=== PATIENT | female | born 1980 | race Caucasian/White ===

== ENCOUNTER 2016-10-24 17:48 | Inpatient (IN) | payer OTHER ==
[~2016-10-24] VITALS: Ht 165.1 cm; Wt 63.7 kg
[2016-10-24 20:00] VITALS: Ht 165.1 cm; Wt 63.7 kg
[2016-10-24 20:06] VITALS: BP 119/65; RESP 20
[2016-10-24 20:21] VITALS: PULSE 85
[2016-10-24] MEDS ORDERED: BUPR300T36 PO (23:58)
[2016-10-24] MEDS ORDERED: LAMO200T PO (23:58)
[2016-10-24] MEDS ORDERED: ESCI20TA PO (23:59)
[2016-10-25] VITALS (12 sets, daily range): BP systolic 95–121; BP diastolic 51–70; PULSE 77–108; RESP 16–20
[2016-10-25] MEDS ORDERED: ONDANSETRON 4 MG INJ IV PRN
[2016-10-25 06:05] LABS: ADD SCAN DIFF NO
[2016-10-25 06:35] LABS: ALANINE AMINOTRANSFERASE 30 IU/L (13-69); ALBUMIN 2.9 g/dl (3.3-4.9); ALBUMIN/GLOBULIN RATIO 1.31; ALKALINE PHOSPHATASE 35 IU/L (42-121); ANION GAP 11 (8-16); ASPARTATE AMINO TRANSFERASE 14 IU/L (15-46); BILIRUBIN,INDIRECT 0.1 mg/dl (0-1.1); BILIRUBIN,TOTAL 0.1 mg/dl (0.2-1.3); BLOOD UREA NITROGEN 18 mg/dl (7-20); CARBON DIOXIDE 26 mmol/L (21-31); CHLORIDE 108 mmol/L (97-110); CREATININE 0.83 mg/dl (0.44-1.00); GLUCOSE 84 mg/dl (70-220); MAGNESIUM 1.9 mg/dl (1.7-2.5); PHOSPHORUS 3.7 mg/dl (2.5-4.9); POTASSIUM 4.3 mmol/L (3.5-5.1); SODIUM 141 mmol/L (135-144); TOTAL PROTEIN 5.1 g/dl (6.1-8.1)
[2016-10-25 06:49] LABS: ABNORMAL IP MESSAGE 1; HEMATOCRIT 21.5 % (37.0-47.0); MEAN CORPUSCULAR HEMOGLOBIN 27.9 pg (29.0-33.0); MEAN CORPUSCULAR HGB CONC 32.1 g/dl (32.0-37.0); MEAN PLATELET VOLUME 10.2 fl (7.4-10.4); PLATELET COUNT 172 10^3/UL (140-415); RED BLOOD COUNT 2.47 10^6/ul (4.20-5.40); RED CELL DISTRIBUTION WIDTH 13.3 % (11.5-14.5); WHITE BLOOD COUNT 5.6 10^3/ul (4.8-10.8)
[2016-10-25 06:56] LABS: TROPONIN-I < 0.012 ng/ml (0.00-0.12)
[2016-10-25 07:27] LABS: HEMOGLOBIN 6.9 g/dl (12.0-16.0)
[2016-10-25] MEDS: LAMOTRIGINE 100 MG TAB PO SCH (09:34)
[2016-10-25] MEDS: ESCITALOPRAM 10 MG TAB PO SCH (09:35)
[2016-10-25] MEDS: BUPROPION (XL) 150 MG TAB PO SCH (09:35)
[2016-10-25] MEDS: ACETAMINOPHEN 325 MG TAB PO PRN ×2 (09:46→16:03)
--- NOTE | 2016-10-25 09:54 | HP ---
DATE OF ADMISSION: 10/24/2016 CHIEF COMPLAINT: Syncope. HISTORY OF PRESENT ILLNESS: The patient is a 36-year-old female who initially presented to outside hospital complaining of multiple episodes of loss of consciousness. She said syncope occurs only af ter she was walking or when she is standing. She has been feeling dizzy and lightheaded. She state s she has had about 7 episodes of syncope, each lasting about 30 seconds each. She said she was fee ling lightheaded/dizzy and also reported some tingling sensation on her fingers which serve as prodr ome for syncope. She denied any chest pain, palpitations, nausea, vomiting, fevers, chills, focal w eakness. The patient was transferred from outside hospital here because of insurance reasons. REVIEW OF SYSTEMS: A 12-point review was performed and negative except as mentioned in HPI. PAST MEDICAL HISTORY: As per HPI. PAST SURGICAL HISTORY: She has had some type of abdominal surgery for GERD, gastric bypass surgery, gastric fundoplication per GI endoscopy. SOCIAL HISTORY: Denied a history of tobacco, alcohol, or illicit drug use. ALLERGIES: CODEINE. HOME MEDICATION: 1. Bupropion. 2. Lexapro. 3. Lamictal. 4. Prevacid. 5. Ranexa. PHYSICAL EXAMINATION: Vital signs: Initially when she came in, blood pressure was 119/68, heart rate 67, respiratory rate 20, temperature 98.8, oxygen saturation 99% on room air while she was in supine position. We did or thostatics, and in the prone position, 103/55, sitting 95/51, and standing 96/51. GENERAL: The patient lying in bed in no acute distress but at times seems slightly worried. HEENT: No obvious head deformity. Pupils reactive to light. Extraocular muscles intact. CARDIOVASCULAR: Regular rate and rhythm. No extra sounds. LUNGS: Clear. ABDOMEN: Soft, nontender, nondistended. Positive bowel sounds. EXTREMITIES: No edema. NEUROLOGIC: No focal deficit. LABORATORY DATA: Her laboratory results just came and show that hemoglobin is 6.9. Otherwise, CBC and CMP within normal limits. IMPRESSION: 1. Syncope. 2. History of bipolar disorder. 3. History of gastroesophageal reflux disease. PLAN: We will continue to monitor on telemetry unit. We will obtain a 2D echo, head CT, and caroti d Doppler ultrasound. We will trend her troponins. We did do orthostatics, and it was not positive . I am not quite sure if this has any relation with some type of psychiatric condition. This is ye t to be determined. In the meantime, we will rule out for ACS and obtain a 2D echo and monitor on t he telemetry unit. Further workup and management per clinical course. Dictated By: VA ÁLVAREZ/NEVA Conf#: [id number] DID#: [id number]
[2016-10-25 10:00] LABS: EOSINOPHILS # 0.1 10^3/ul (0.0-0.5); MONOCYTE # 0.2 10^3/ul (0.3-0.9); NEUTROPHIL # 3.4 10^3/ul (1.6-7.5)
--- NOTE | 2016-10-25 18:53 | PN ---
Date/Time of Note Date/Time of Note DATE: 10/25/16 TIME: 18:45 Assessment/Plan VTE Prophylaxis VTE Prophylaxis Intervention: SCD's Lines/Catheters [facility]ter Type [facility]from [facility] Saline Lock Urinary Cath still in place: No Assessment/Plan Chief Complaint/Hosp Course 1. Syncope-multiple episodes with orthostatic hypotension and tachycardia likely secondary to an acute anemia Transfuse 1 unit of packed red blood cells Rule out cardiac etiology with 2D echo, carotid ultrasound to rule out vascular cause of syncope, of note both cardiac and vascular etiologies patient's syncope is unlikely 2. Normocytic anemia-patient may have developed an acute anemia causing her repeated episodes of syncope Patient denies heavy menses and denies any melena or bright red blood per stool , check a stool occult blood Check an iron panel, vitamin B12 and folate Patient may have an autoimmune hemolytic anemia, will check a reticulocyte count , LDH and haptoglobin, hematology consultation obtained for further workup 3. Hypothyroidism Endocrinology consultation obtained 4. History of bipolar disorder Continue home meds 5. History of gastroesophageal reflux disease with esophageal stricture-no acute issues Prophylaxis: SCDs Problems: Subjective 24 Hr Interval Summary Constitutional: no complaints Exam/Review of Systems Vital Signs Vitals Vital Signs Date Time Temp Pulse Resp B/P Pulse Ox O2 Delivery O2 Flow Rate FiO2 10/25/16 16:06 90 10/25/16 15:15 98.8 19 102/56 100 10/25/16 01:34 Room Air Exam Constitutional: alert Respiratory: clear to auscultation Cardiovascular: regular rate and rhythm Gastrointestinal: soft, No distended Musculoskeletal: nl extremities to inspection Results Result Diagram: 10/25/16 1126 10/25/16 0535 Results 24 hrs Laboratory Tests Test 10/25/16 05:35 10/25/16 05:38 10/25/16 11:26 Sodium Level 141 Potassium Level 4.3 Chloride Level 108 Carbon Dioxide Level 26 Anion Gap 11 Blood Urea Nitrogen 18 Creatinine 0.83 Glucose Level 84 Calcium Level 8.0 L Phosphorus Level 3.7 Magnesium Level 1.9 Total Bilirubin 0.1 L Direct Bilirubin 0.00 Indirect Bilirubin 0.1 Aspartate Amino Transf (AST/SGOT) 14 L Alanine Aminotransferase (ALT/SGPT) 30 Alkaline Phosphatase 35 L Troponin I < 0.012 Total Protein 5.1 L Albumin 2.9 L Globulin 2.20 Albumin/Globulin Ratio 1.31 Thyroid Stimulating Hormone (TSH) 5.450 H White Blood Count 5.6 Red Blood Count 2.47 L Hemoglobin 6.9 *L Hematocrit 21.5 L 20.3 L Mean Corpuscular Volume 87.0 Mean Corpuscular Hemoglobin 27.9 L Mean Corpuscular Hemoglobin Concent 32.1 Red Cell Distribution Width 13.3 Platelet Count 172 Mean Platelet Volume 10.2 Neutrophils % 60.0 Lymphocytes % 36.0 Monocytes % 3.0 Eosinophils % 1.0 Neutrophils # 3.4 Lymphocytes # 2.0 Monocytes # 0.2 L Eosinophils # 0.1 Free Thyroxine 0.61 L Medications Medications Current Medications Ondansetron HCl (Zofran Inj) 4 mg Q6H PRN IV NAUSEA AND/OR VOMITING; Start at 00:00 Acetaminophen (Tylenol Tab) 650 mg Q6H PRN PO PAIN AND OR ELEVATED TEMP Last administered on 10/25/16 16:03; Admin Dose 650 MG; Start 10/25/16 at 00:00 Bupropion HCl (Wellbutrin Xl) 300 mg DAILY PO Last administered on 10/25/16 09 :35; Admin Dose 300 MG; Start 10/25/16 at 09:00 Escitalopram Oxalate (Lexapro) 20 mg DAILY PO Last administered on 10/25/16 09 :35; Admin Dose 20 MG; Start 10/25/16 at 09:00 Lamotrigine (Lamictal) 200 mg DAILY PO Last administered on 10/25/16 09:34; Admin Dose 200 MG; Start 10/25/16 at 09:00 EAN TURPIN October 25, 2016 18:53
[2016-10-25 19:48] LABS: RETICULOCYTE COUNT % 1.3 % (0.5-1.5)
[2016-10-26] VITALS (13 sets, daily range): BP systolic 94–105; BP diastolic 46–59; PULSE 81–98; RESP 18–20
--- NOTE | 2016-10-26 01:39 | RADRPT ---
PROCEDURE: Carotid ultrasound CLINICAL INDICATION: Syncope, carotid bruits TECHNIQUE: Montanez scale, color doppler, spectral doppler ultrasound of the bilateral carotid and martín tebral arteries. This study indirectly references the measurement of the distal ICA diameter as the denominator for s tenosis measurement. Validated velocity measurements with angiographic measurements, velocity criter ia are extrapolated from diameter data as defined by: *Cartoid artery stenosis: montanez-scale and Doppl er US diagnosis. Society of Radiologists in Ultrasound Consensus Conference. Radiology 2003; 229: 34 0-346. SRU Consensus Conference Criteria for the Diagnosis of Carotid Artery Stenosis* Degree of Stenosis, % ICA PSV, cm/sec Plaque Estimate, % ICA/CCA PSV Ratio Normal <125 None <2.0 <50 <125 <50 <2.0 50 69 125-230 >50 2.0-4.0 >70 but less than near occlusion >230 >50 <4.0 Near occlusion High, low, or undetectable Visible Variable Total occlusion Undetectable Visible, no detectable lumen Not applicable COMPARISON: No prior studies are available for comparison. FINDINGS: Location Right CFB470 cm/sec Prox ICA 97 cm/sec Mid ICA90 cm/sec Dist WIQ817 cm/sec ECA66 cm/sec ICA/CCA1.2 Left CCA92 cm/sec Prox ICA 99 cm/sec Mid JBZ281 cm/sec Dist XSZ198 cm/sec ECA95 cm/sec ICA/CCA1.4 Plaque burden: None. Antegrade flow is seen within the vertebral arteries bilaterally. IMPRESSION: Although velocities are minimally elevated within the left internal carotid artery there is no evide nce of plaque seen, may reflect a hyperdynamic state. RPTAT: AADD .Robinson Dias MD, Date Time Electronically viewed and signed by .Robinson Dias MD, on 10/26/2016 01:39 .B/
[2016-10-26 06:47] LABS: ADD SCAN DIFF NO
[2016-10-26 06:51] LABS: BASOPHILS % 0.2 % (0.0-2.0); EOSINOPHILS # 0.1 10^3/ul (0.0-0.5); EOSINOPHILS % 1.1 % (0.0-7.0); HEMATOCRIT 21.9 % (37.0-47.0); LYMPHOCYTES % 37.2 % (15.0-51.0); MEAN CORPUSCULAR VOLUME 87.6 fl (82.0-101.0); MEAN PLATELET VOLUME 10.5 fl (7.4-10.4); MONOCYTE # 0.3 10^3/ul (0.3-0.9); MONOCYTES % 5.9 % (0.0-11.0); NEUTROPHIL # 2.9 10^3/ul (1.6-7.5); NEUTROPHILS % 55.4 % (39.0-77.0); PLATELET COUNT 172 10^3/UL (140-415); RED CELL DISTRIBUTION WIDTH 13.8 % (11.5-14.5); WHITE BLOOD COUNT 5.3 10^3/ul (4.8-10.8)
[2016-10-26 07:12] LABS: POTASSIUM 4.1 mmol/L (3.5-5.1)
[2016-10-26 07:14] LABS: IRON 26 ug/dl (35-150)
[2016-10-26 07:15] LABS: CALCIUM 7.8 mg/dl (8.4-10.2); CREATININE 0.78 mg/dl (0.44-1.00)
[2016-10-26 07:24] LABS: TOTAL IRON BINDING CAPACITY 323 ug/dl (241-421)
[2016-10-26] MEDS: BUPROPION (XL) 150 MG TAB PO SCH (08:19)
[2016-10-26] MEDS: ESCITALOPRAM 10 MG TAB PO SCH (08:20)
[2016-10-26] MEDS: LAMOTRIGINE 100 MG TAB PO SCH (08:20)
--- NOTE | 2016-10-26 09:36 | CONS ---
Date/Time of Note Date/Time of Note DATE: 10/26/16 TIME: : Assessment/Plan Assessment/Plan Problems: (1) Syncope and collapse Status: Acute Comment: Evaluation of this is in process. Please note there is very real possibility that her metabolic issues at hand (2) Bipolar affective disorder in remission Status: Chronic Comment: This is been well controlled on her medications. I do not think that she is having orthostatic hypotension induced by her medication regimen, especially as these medications are not well associated without phenomenon I would not change this regimen (3) History of esophageal stricture Status: Chronic Comment: Noted. This can be followed up as an outpatient (4) Iron (Fe) deficiency anemia Status: Chronic Comment: Depending upon the type of surgery she had these surgeries can be very ulcerogenic and lead to chronic iron deficiency anemias. This is a combination of blood loss and the lack of the ability to absorb the iron. She is going to need some type of iron replacement will go ahead and give her at least 1 dose of Ferrlecit while she is in the hospital. Please note she is artery been given 1 unit of blood. I suspect if we walk around now she will not have the syncopal events Qualifiers: Qualified Code: D50.9 - Iron deficiency anemia, unspecified iron deficiency anemia type (5) History of bariatric surgery Status: Chronic Comment: These surgeries have a malabsorption syndrome as part of how they work. She very easily could have multiple vitamin deficiencies including B12 and D as well as multiple mineral abnormalities. I have counseled her on the appropriate supplements that she is supposed to be taking after these surgeries. We will do the basic lab testing to make sure were not dealing with that. Additional Assessment/Plan Borderline elevation of TSH. This is a chronic problem for this young lady. I suspect she probably has antibody positive thyroid disease but is euthyroid. Based on the current teachings from the [place] [employer] and endocrine Society she is not appropriate for intervention. What I do not know is what her cortisol axis is like. I doubt that she has a significant cortisol abnormality but I will check just to be on the safe side Consultation Date/Type/Reason Admit Date/Time October 24, 2016 at 19:35 Date of Consultation: October 26, 2016 Type of Consultation: Endocrinology Reason for Consultation Borderline elevation of TSH; status post gastric bypass; syncope; iron deficiency anemia Referring Provider: DYANA,BORNA Hx of Present Illness Charming 36-year-old right-handed single female admitted with syncope. This is a new phenomenon for this woman. She has otherwise been in generally good health with specific caveats to be seen in the past medical history. Her history is as documented. Please note that she has not been taking her medications for the bariatric surgery gastric bypass she had in the past. This means she has not been on B12 she has not been on multiple vitamins she has not been on calcium and she has not been on vitamin D. She denies any prior treatment with steroids the best of her knowledge Constitutional: no complaints Eyes: no complaints ENT: no complaints Respiratory: no complaints Cardiovascular: no complaints Gastrointestinal: no complaints (Specifically denies melena or bright red blood per rectum) Genitourinary: no complaints Musculoskeletal: no complaints Skin: no complaints Neurologic: no complaints Endocrine: no complaints (Specifically denies orthostatic symptoms also denies any possible exposure to steroids) Past Medical History Bipolar affective disorder; history of obesity; mal absorption. Past Surgical History Status post gastric bypass with [employer] construction performed in [facility]. Status post upper endoscopy for esophageal stricture after the prior surgery 3. Family History Significant Family History: no pertinent family hx Social History Alcohol Use: rarely Smoking Status: Never smoker Drug Use: none Other Social History Born in [place] and raised there is lives in [place] for the last 10 years. She is involved but not engaged or . She lives alone Exam/Review of Systems Vital Signs Vitals Vital Signs Date Time Temp Pulse Resp B/P Pulse Ox O2 Delivery O2 Flow Rate FiO2 10/26/16 08:02 81 10/26/16 08:00 98.0 18 94/46 98 10/25/16 01:34 Room Air Intake and Output 10/25/16 10/25/16 10/26/16 15:00 23:00 07:00 Intake Total 1150 ml 400 ml Balance 1150 ml 400 ml Exam Constitutional: alert, oriented Psych: nl mood/affect, no complaints Eyes: EOMI, nl conjunctiva, nl lids, nl sclera Respiratory: clear to auscultation, normal air movement Cardiovascular: nl pulses, regular rate and rhythm Gastrointestinal: nl liver, spleen, non-tender, soft Results Result Diagram: 10/26/16 0610 10/26/16 0610 Results 24 hrs Laboratory Tests Test 10/25/16 11:26 10/25/16 19:30 10/26/16 06:10 Hematocrit 20.3 L 21.9 L Free Thyroxine 0.61 L Erythrocyte Sedimentation Rate 3 Absolute Reticulocyte Count 0.034 Percent Reticulocyte Count 1.3 Lactate Dehydrogenase 268 L White Blood Count 5.3 Red Blood Count 2.50 L Hemoglobin 7.0 L Mean Corpuscular Volume 87.6 Mean Corpuscular Hemoglobin 28.0 L Mean Corpuscular Hemoglobin Concent 32.0 Red Cell Distribution Width 13.8 Platelet Count 172 Mean Platelet Volume 10.5 H Neutrophils % 55.4 Lymphocytes % 37.2 Monocytes % 5.9 Eosinophils % 1.1 Basophils % 0.2 Nucleated Red Blood Cells % 0.0 Neutrophils # 2.9 Lymphocytes # 2.0 Monocytes # 0.3 Eosinophils # 0.1 Basophils # 0.0 Nucleated Red Blood Cells # 0.0 Sodium Level 139 Potassium Level 4.1 Chloride Level 113 H Carbon Dioxide Level 28 Anion Gap 2 #L Blood Urea Nitrogen 19 Creatinine 0.78 Glucose Level 87 Calcium Level 7.8 L Iron Level 26 L Total Iron Binding Capacity 323 Percent Iron Saturation 8 L Medications Medications Current Medications Ondansetron HCl (Zofran Inj) 4 mg Q6H PRN IV NAUSEA AND/OR VOMITING; Start at 00:00 Acetaminophen (Tylenol Tab) 650 mg Q6H PRN PO PAIN AND OR ELEVATED TEMP Last administered on 10/25/16 16:03; Admin Dose 650 MG; Start 10/25/16 at 00:00 Bupropion HCl (Wellbutrin Xl) 300 mg DAILY PO Last administered on 10/26/16 08 :19; Admin Dose 300 MG; Start 10/25/16 at 09:00 Escitalopram Oxalate (Lexapro) 20 mg DAILY PO Last administered on 10/26/16 08 :20; Admin Dose 20 MG; Start 10/25/16 at 09:00 Lamotrigine 200 mg 200 mg DAILY PO Last administered on 10/26/16 08:20; Admin Dose 200 MG; Start 10/25/16 at 09:00 Ferric Sodium Gluconate Complex/ Sodium Chloride (Ferrlecit/NS) 110 ml @ 100 mls/hr Q24H IVPB ; Start 10/26/16 at 10:00; Stop 10/28/16 at 11:05 Cyanocobalamin (Vitamin B12 Inj) 1,000 mcg ONCE ONCE IM ; Start 10/26/16 at 10: 00; Stop 10/26/16 at 10:01 ELIZABETH TRAORE MD October 26, 2016 09:36
[2016-10-26 09:57] LABS: FOLATE 6.9 ng/ml (2.8-20.0)
[2016-10-26] MEDS ORDERED: CYANOCOBALAMIN 1000 MCG INJ IM ONE (10:00)
[2016-10-26] MEDS ORDERED: SOD FERRIC GLUC COMPLX 125 MG in SOD CHLORIDE 0.9% 100 ML IVPB SCH (10:00)
[2016-10-26] MEDS: ACETAMINOPHEN 325 MG TAB PO PRN ×2 (10:36→17:26)
[2016-10-26] MEDS: MULTIVITAMINS THERAPEUTIC TAB PO SCH (10:38)
--- NOTE | 2016-10-26 13:13 | CONS ---
Date/Time of Note Date/Time of Note DATE: 10/26/16 TIME: 13:01 Assessment/Plan Assessment/Plan Chief Complaint/Hosp Course 36 yo with severe anemia secondary to severe iron deficiency as well as Vitamin b12 deficiency. These are related to her gastric bypass from 2014 as it appears patient is not fabiola to appropriatly absorb essential nutrients. Give her low LDH and normal bilirubin it is unlikely patient is hemolyzing. -start Vitamin b12 1000mcg q day x 7 days then 1x week for 4 week. She will then continue with q months dosage -check methylmalonic acid and homocysteine levels. -start folate 1 mg q day -cont IV iron x 5 days for now -continue to monitor Hg. Problems: Consultation Date/Type/Reason Admit Date/Time October 24, 2016 at 19:35 Date of Consultation: October 26, 2016 Type of Consultation: Hematology Reason for Consultation anemia Referring Provider: EAN TURPIN Hx of Present Illness 36 yo with history of gastric bypass in 2014 who presented first to [facility] after an episode of syncopal events where she repeatedly passed out in the bathroom. Pt states she also has heavy periods during which time she craves red meat and feels weak. In the ER she was noted to be severely anemic with a Hg 6.9. She received 1 unit of PRBC and her HG only minimally zachary to 7. She continues to feel weak and lightheaded. Anemia labs have been drawn and indicate iron deficiency as well as Vitamin b12 deficiency. She has since been started on IV iron and Vitamin b12 injections. Constitutional: disoriented, other (weak), poor po Eyes: no complaints ENT: no complaints, other (headache) Respiratory: shortness of breath Cardiovascular: no complaints Gastrointestinal: no complaints (Specifically denies melena or bright red blood per rectum) Genitourinary: no complaints Musculoskeletal: bone/joint pain, no complaints Skin: no complaints Neurologic: no complaints Endocrine: no complaints (Specifically denies orthostatic symptoms also denies any possible exposure to steroids) Psychological: nl mood/affect, no complaints Past Medical History She has had some type of abdominal surgery for GERD, gastric bypass surgery, gastric fundoplication per GI endoscopy. Family History Significant Family History: no pertinent family hx Social History Alcohol Use: rarely Smoking Status: Never smoker Drug Use: none Exam/Review of Systems Vital Signs Vitals Vital Signs Date Time Temp Pulse Resp B/P Pulse Ox O2 Delivery O2 Flow Rate FiO2 10/26/16 12:14 90 10/26/16 11:42 98.0 18 101/52 98 10/25/16 01:34 Room Air Intake and Output 10/25/16 10/25/16 10/26/16 15:00 23:00 07:00 Intake Total 1150 ml 400 ml Balance 1150 ml 400 ml Exam Constitutional: alert, oriented Psych: nl mood/affect, no complaints Head: normocephalic Eyes: nl conjunctiva ENMT: nl external ears & nose Neck: non-tender, supple Respiratory: clear to auscultation, normal air movement Cardiovascular: nl pulses, regular rate and rhythm Gastrointestinal: soft Musculoskeletal: nl extremities to inspection, nl gait and stance Extremities: normal pulses Results Result Diagram: 10/26/16 0610 10/26/16 0610 Results 24 hrs Laboratory Tests Test 10/25/16 19:30 10/26/16 06:10 Erythrocyte Sedimentation Rate 3 Absolute Reticulocyte Count 0.034 Percent Reticulocyte Count 1.3 Lactate Dehydrogenase 268 L White Blood Count 5.3 Red Blood Count 2.50 L Hemoglobin 7.0 L Hematocrit 21.9 L Mean Corpuscular Volume 87.6 Mean Corpuscular Hemoglobin 28.0 L Mean Corpuscular Hemoglobin Concent 32.0 Red Cell Distribution Width 13.8 Platelet Count 172 Mean Platelet Volume 10.5 H Neutrophils % 55.4 Lymphocytes % 37.2 Monocytes % 5.9 Eosinophils % 1.1 Basophils % 0.2 Nucleated Red Blood Cells % 0.0 Neutrophils # 2.9 Lymphocytes # 2.0 Monocytes # 0.3 Eosinophils # 0.1 Basophils # 0.0 Nucleated Red Blood Cells # 0.0 Sodium Level 139 Potassium Level 4.1 Chloride Level 113 H Carbon Dioxide Level 28 Anion Gap 2 #L Blood Urea Nitrogen 19 Creatinine 0.78 Glucose Level 87 Calcium Level 7.8 L Iron Level 26 L Total Iron Binding Capacity 323 Percent Iron Saturation 8 L Ferritin 4.7 L Vitamin B12 Level 191 L Folate 6.9 Random Cortisol 12.1 Medications Medications Current Medications Ondansetron HCl (Zofran Inj) 4 mg Q6H PRN IV NAUSEA AND/OR VOMITING; Start at 00:00 Acetaminophen (Tylenol Tab) 650 mg Q6H PRN PO PAIN AND OR ELEVATED TEMP Last administered on 10/26/16 10:36; Admin Dose 650 MG; Start 10/25/16 at 00:00 Bupropion HCl (Wellbutrin Xl) 300 mg DAILY PO Last administered on 10/26/16 08 :19; Admin Dose 300 MG; Start 10/25/16 at 09:00 Escitalopram Oxalate (Lexapro) 20 mg DAILY PO Last administered on 10/26/16 08 :20; Admin Dose 20 MG; Start 10/25/16 at 09:00 Lamotrigine 200 mg 200 mg DAILY PO Last administered on 10/26/16 08:20; Admin Dose 200 MG; Start 10/25/16 at 09:00 Ferric Sodium Gluconate Complex/ Sodium Chloride (Ferrlecit/NS) 110 ml @ 100 mls/hr Q24H IVPB Last administered on 10/26/16 10:51; Admin Dose 100 MLS/HR; Start 10/26/16 at 10:00; Stop 10/28/16 at 11:05 Multivitamins Therapeutic (Theragran) 1 tab DAILY PO Last administered on 10:38; Admin Dose 1 TAB; Start 10/26/16 at 09:30 Cyanocobalamin 1000 mcg 1,000 mcg DAILY IM ; Start 10/26/16 at 14:00; Stop at 09:01 Ferric Sodium Gluconate Complex/ Sodium Chloride (Ferrlecit/NS) 110 ml @ 110 mls/hr Q24H IVPB ; Start 10/26/16 at 13:00; Stop 10/30/16 at 13:59; Status NAVNEET CRAWFORD M.D. October 26, 2016 13:12
[2016-10-26] MEDS ORDERED: CYANOCOBALAMIN 1000 MCG INJ IM SCH (14:00)
[2016-10-26 14:13] LABS: HEMATOCRIT 21.5 % (37.0-47.0)
--- NOTE | 2016-10-26 14:34 | PN ---
Date/Time of Note Date/Time of Note DATE: 10/26/16 TIME: 14:29 Assessment/Plan VTE Prophylaxis VTE Prophylaxis Intervention: SCD's Lines/Catheters IV C[facility]ter Type (from [facility] Saline Lock Urinary Cath still in place: No Assessment/Plan Assessment/Plan 1. Syncope-multiple episodes with orthostatic hypotension and tachycardia likely secondary to an acute anemia: no further episodes so far * Patient having intermittent non sustained episodes of tachycardia to 120s on the monitor * f/u echo / urine drug abuse screen / mag / phos 2. Severe symptomatic Normocytic anemia 2/2 iron and B12 deficiency likely from gastric bypass per hematology patient reports periods typically last 8 days, but regular Will need extra transfusion / iron therapy and likely lifetime b12 therapy 3. Subclinical Hypothyroidism: no intervention / monitoring per Endo 4. History of bipolar disorder: Stable Continue home meds 5. History of gastroesophageal reflux disease with esophageal stricture-no acute issues Prophylaxis: SCDs Subjective 24 Hr Interval Summary Free Text/Dictation feels better Exam/Review of Systems Vital Signs Vitals Vital Signs Date Time Temp Pulse Resp B/P Pulse Ox O2 Delivery O2 Flow Rate FiO2 10/26/16 12:14 90 10/26/16 11:42 98.0 18 101/52 98 10/25/16 01:34 Room Air Intake and Output 10/25/16 10/25/16 10/26/16 14:59 22:59 06:59 Intake Total 1150 ml 400 ml Balance 1150 ml 400 ml Exam Constitutional: alert Respiratory: clear to auscultation Cardiovascular: regular rate and rhythm Gastrointestinal: soft, No distended Musculoskeletal: nl extremities to inspection Results Result Diagram: 10/26/16 1217 10/26/16 0610 Results 24 hrs Laboratory Tests Test 10/25/16 19:30 10/26/16 06:10 10/26/16 12:17 Erythrocyte Sedimentation Rate 3 Absolute Reticulocyte Count 0.034 Percent Reticulocyte Count 1.3 Lactate Dehydrogenase 268 L White Blood Count 5.3 Red Blood Count 2.50 L Hemoglobin 7.0 L 7.0 L Hematocrit 21.9 L 21.5 L Mean Corpuscular Volume 87.6 Mean Corpuscular Hemoglobin 28.0 L Mean Corpuscular Hemoglobin Concent 32.0 Red Cell Distribution Width 13.8 Platelet Count 172 Mean Platelet Volume 10.5 H Neutrophils % 55.4 Lymphocytes % 37.2 Monocytes % 5.9 Eosinophils % 1.1 Basophils % 0.2 Nucleated Red Blood Cells % 0.0 Neutrophils # 2.9 Lymphocytes # 2.0 Monocytes # 0.3 Eosinophils # 0.1 Basophils # 0.0 Nucleated Red Blood Cells # 0.0 Sodium Level 139 Potassium Level 4.1 Chloride Level 113 H Carbon Dioxide Level 28 Anion Gap 2 #L Blood Urea Nitrogen 19 Creatinine 0.78 Glucose Level 87 Calcium Level 7.8 L Iron Level 26 L Total Iron Binding Capacity 323 Percent Iron Saturation 8 L Ferritin 4.7 L Vitamin B12 Level 191 L Folate 6.9 Random Cortisol 12.1 Medications Medications Current Medications Ondansetron HCl (Zofran Inj) 4 mg Q6H PRN IV NAUSEA AND/OR VOMITING; Start at 00:00 Acetaminophen (Tylenol Tab) 650 mg Q6H PRN PO PAIN AND OR ELEVATED TEMP Last administered on 10/26/16 10:36; Admin Dose 650 MG; Start 10/25/16 at 00:00 Bupropion HCl (Wellbutrin Xl) 300 mg DAILY PO Last administered on 10/26/16 08 :19; Admin Dose 300 MG; Start 10/25/16 at 09:00 Escitalopram Oxalate (Lexapro) 20 mg DAILY PO Last administered on 10/26/16 08 :20; Admin Dose 20 MG; Start 10/25/16 at 09:00 Lamotrigine (Lamictal) 200 mg DAILY PO Last administered on 10/26/16 08:20; Admin Dose 200 MG; Start 10/25/16 at 09:00 Multivitamins Therapeutic 1 tab 1 tab DAILY PO Last administered on 10/26/16 10:38; Admin Dose 1 TAB; Start 10/26/16 at 09:30 Ferric Sodium Gluconate Complex/ Sodium Chloride (Ferrlecit/NS) 110 ml @ 110 mls/hr Q24H IVPB ; Start 10/27/16 at 13:00; Stop 10/30/16 at 13:59 Cyanocobalamin (Vitamin B12 Inj) 1,000 mcg DAILY IM ; Start 10/27/16 at 09:00; Stop 11/02/16 at 09:01 RUDDY BLOOD October 26, 2016 14:34
--- NOTE | 2016-10-26 17:40 | RADRPT ---
PROCEDURE: US Pelvis CLINICAL INDICATION: Menorrhagia. Anemia. TECHNIQUE: Sonographic evaluation of the pelvis was performed utilizing both transabdominal and tr ansvaginal technique. Curved array transabdominal transducer technique as well as a high frequency endovaginal probe was utilized. Images were reviewed on the high-resolution PACS workstation. COMPARISON: No prior studies are available for comparison. FINDINGS: The uterus measures 7.85 cm x 3.33 cm x 3.79 cm in dimension. The uterus is anteverted in normal position. The endometrium measures 0.98 cm in thickness. The right ovary measures 3.1 cm x 1.75 cm x 1.71 cm in dimension. The left ovary measures 4.26 cm x 2.92 cm x 2.49 cm in dimension. There is a 1.9 x 1.6 x 1.8 cm left ovarian cystic lesion with diffu se low level internal echoes. There is normal flow demonstrated within the ovaries. There are no ad nexal masses. There is no significant free fluid within the pelvis. IMPRESSION: 1. Complicated left ovarian cystic lesion measuring 1.9 cm, which may represent a hemorrhagic cyst or endometrioma. Follow-up pelvic ultrasound and 6 or 12 weeks is recommended. RPTAT: EE .Jeremiah Rodriguez MD, Date Time Electronically viewed and signed by .Jeremiah Rodriguez MD, MD on 10/26/2016 17:40 .P/
[2016-10-26 19:03] LABS: BARBITURATES Negative (NEGATIVE); BENZODIAZEPINES Negative (NEGATIVE); CANNABINOIDS Negative (NEGATIVE); COCAINE Negative (NEGATIVE); OPIATES Negative (NEGATIVE)
[2016-10-26 23:20] LABS: RETICULOCYTE COUNT % 1.9 % (0.5-1.5)
[2016-10-27] VITALS (11 sets, daily range): BP systolic 94–111; BP diastolic 51–60; PULSE 76–89; RESP 15–20
[2016-10-27 06:14] LABS: ADD SCAN DIFF NO
[2016-10-27 06:19] LABS: BASOPHILS % 0.5 % (0.0-2.0); EOSINOPHILS # 0.1 10^3/ul (0.0-0.5); EOSINOPHILS % 0.9 % (0.0-7.0); HEMATOCRIT 22.6 % (37.0-47.0); HEMOGLOBIN 7.5 g/dl (12.0-16.0); LYMPHOCYTES # 2.2 10^3/ul (0.8-2.9); LYMPHOCYTES % 38.4 % (15.0-51.0); MEAN CORPUSCULAR HEMOGLOBIN 28.3 pg (29.0-33.0); MEAN CORPUSCULAR HGB CONC 33.2 g/dl (32.0-37.0); MEAN CORPUSCULAR VOLUME 85.3 fl (82.0-101.0); MONOCYTE # 0.3 10^3/ul (0.3-0.9); MONOCYTES % 5.7 % (0.0-11.0); NEUTROPHIL # 3.1 10^3/ul (1.6-7.5); NEUTROPHILS % 54.1 % (39.0-77.0); PLATELET COUNT 164 10^3/UL (140-415); RED BLOOD COUNT 2.65 10^6/ul (4.20-5.40); RED CELL DISTRIBUTION WIDTH 13.6 % (11.5-14.5); WHITE BLOOD COUNT 5.6 10^3/ul (4.8-10.8)
[2016-10-27 06:31] LABS: MAGNESIUM 1.8 mg/dl (1.7-2.5); PHOSPHORUS 3.6 mg/dl (2.5-4.9); POTASSIUM 3.9 mmol/L (3.5-5.1)
[2016-10-27 06:34] LABS: CREATININE 0.74 mg/dl (0.44-1.00)
[2016-10-27 06:35] LABS: CALCIUM 7.6 mg/dl (8.4-10.2)
[2016-10-27] MEDS: BUPROPION (XL) 150 MG TAB PO SCH (08:46)
[2016-10-27] MEDS: CYANOCOBALAMIN 1000 MCG INJ IM SCH (08:46)
[2016-10-27] MEDS: MULTIVITAMINS THERAPEUTIC TAB PO SCH (08:47)
[2016-10-27] MEDS: LAMOTRIGINE 100 MG TAB PO SCH (08:47)
[2016-10-27] MEDS: ESCITALOPRAM 10 MG TAB PO SCH (08:47)
[2016-10-27 10:54] LABS: THYROID MICROSOMAL ANTIBODY 1 IU/mL (<9)
--- NOTE | 2016-10-27 12:02 | CONS ---
Date/Time of Note Date/Time of Note DATE: 10/27/16 TIME: 11:58 Assessment/Plan Assessment/Plan Chief Complaint/Hosp Course 36 yo with severe anemia secondary to severe iron deficiency as well as Vitamin b12 deficiency. These are related to her gastric bypass from 2014 as it appears patient is not able to appropriately absorb essential nutrients. Give her low LDH and normal bilirubin it is unlikely patient is hemolyzing. Although patient' s hg only zachary to 7.5, it is likely that her initial Hg was less than 7 and was hemoconcentrated at the time which is why after 3 units of PRBCs and fluid the Hg only zachary to 7.5 -will transfuse 2 units of PRBC -continue with Vitamin b12 1000mcg q day x 7 days then 1x week for 4 week. She will then continue with q months dosage -check methylmalonic acid and homocysteine levels. -start folate 1 mg q day -cont IV iron x 5 days for now -continue to monitor Hg. Problems: Consultation Date/Type/Reason Admit Date/Time October 24, 2016 at 19:35 Initial Consult Date 10/26/16 Type of Consultation: Hematology Reason for Consultation anemia Referring Provider: EAN TURPIN 24 HR Interval Summary Free Text/Dictation pt received 2 units of PRBCs yesterday. Hg went up to 7.5. Pt still feels very weak. States her sx did improved after receiving her Vitamin b12 injection and iron infusion Exam/Review of Systems Vital Signs Vitals Vital Signs Date Time Temp Pulse Resp B/P Pulse Ox O2 Delivery O2 Flow Rate FiO2 10/27/16 11:44 98.7 80 20 94/59 100 10/25/16 01:34 Room Air Intake and Output 10/26/16 10/26/16 10/27/16 15:00 23:00 07:00 Intake Total 800 ml 650 ml Output Total 3 ml Balance 797 ml 650 ml Exam Constitutional: alert, oriented Psych: no complaints Head: normocephalic Eyes: nl conjunctiva ENMT: nl external ears & nose Neck: supple Respiratory: clear to auscultation, normal air movement Cardiovascular: nl pulses Gastrointestinal: soft Musculoskeletal: nl extremities to inspection, nl gait and stance Extremities: normal pulses Results Result Diagram: 10/27/16 0528 10/27/16 0528 Results 24 hrs Laboratory Tests Test 10/26/16 12:17 10/26/16 17:30 10/26/16 22:58 10/27/16 05:28 Hemoglobin 7.0 L 7.5 L Hematocrit 21.5 L 22.6 L Stool Occult Blood POSITIVE Urine Opiates Screen Negative Urine Barbiturates Negative Urine Amphetamines Screen Negative Urine Benzodiazepines Screen Negative Urine Cocaine Screen Negative Urine Cannabinoids Negative Absolute Reticulocyte Count 0.057 Percent Reticulocyte Count 1.9 H White Blood Count 5.6 Red Blood Count 2.65 L Mean Corpuscular Volume 85.3 Mean Corpuscular Hemoglobin 28.3 L Mean Corpuscular Hemoglobin Concent 33.2 Red Cell Distribution Width 13.6 Platelet Count 164 Mean Platelet Volume 10.0 Neutrophils % 54.1 Lymphocytes % 38.4 Monocytes % 5.7 Eosinophils % 0.9 Basophils % 0.5 Nucleated Red Blood Cells % 0.0 Neutrophils # 3.1 Lymphocytes # 2.2 Monocytes # 0.3 Eosinophils # 0.1 Basophils # 0.0 Nucleated Red Blood Cells # 0.0 Sodium Level 138 Potassium Level 3.9 Chloride Level 114 H Carbon Dioxide Level 26 Anion Gap 2 L Blood Urea Nitrogen 18 Creatinine 0.74 Glucose Level 85 Calcium Level 7.6 L Phosphorus Level 3.6 Magnesium Level 1.8 Vitamin B12 Level 958 H Medications Medications Current Medications Ondansetron HCl (Zofran Inj) 4 mg Q6H PRN IV NAUSEA AND/OR VOMITING; Start at 00:00 Acetaminophen (Tylenol Tab) 650 mg Q6H PRN PO PAIN AND OR ELEVATED TEMP Last administered on 10/26/16 17:26; Admin Dose 650 MG; Start 10/25/16 at 00:00 Bupropion HCl (Wellbutrin Xl) 300 mg DAILY PO Last administered on 10/27/16 08 :46; Admin Dose 300 MG; Start 10/25/16 at 09:00 Escitalopram Oxalate (Lexapro) 20 mg DAILY PO Last administered on 10/27/16 08 :47; Admin Dose 20 MG; Start 10/25/16 at 09:00 Lamotrigine (Lamictal) 200 mg DAILY PO Last administered on 10/27/16 08:47; Admin Dose 200 MG; Start 10/25/16 at 09:00 Multivitamins Therapeutic 1 tab 1 tab DAILY PO Last administered on 10/27/16 08:47; Admin Dose 1 TAB; Start 10/26/16 at 09:30 Ferric Sodium Gluconate Complex/ Sodium Chloride (Ferrlecit/NS) 110 ml @ 110 mls/hr Q24H IVPB ; Start 10/27/16 at 13:00; Stop 10/30/16 at 13:59 Cyanocobalamin (Vitamin B12 Inj) 1,000 mcg DAILY IM Last administered on t 08:46; Admin Dose 1,000 MCG; Start 10/27/16 at 09:00; Stop 11/02/16 at 09:01 Polyethylene Glycol (Miralax) 17 gm DAILY PO ; Start 10/27/16 at 11:30 NAVNEET LOTT M.D. October 27, 2016 12:02
[2016-10-27] MEDS: POLYETHYLENE GLYCOL 17 GM PACKET PO SCH (12:26)
--- NOTE | 2016-10-27 14:16 | CONS ---
Date/Time of Note Date/Time of Note DATE: 10/27/16 TIME: 14:14 Assessment/Plan Assessment/Plan Chief Complaint/Hosp Course Michael 36-year-old right-handed single female admitted with syncope. This is a new phenomenon for this woman. She has otherwise been in generally good health with specific caveats to be seen in the past medical history. Her history is as documented. Please note that she has not been taking her medications for the bariatric surgery gastric bypass she had in the past. This means she has not been on B12 she has not been on multiple vitamins she has not been on calcium and she has not been on vitamin D. She denies any prior treatment with steroids the best of her knowledge Problems: (1) Blood in stool Status: Acute Comment: Due to the presence of blood in the stool I believe that the addition of sucralfate and famotidine to her regimen is appropriate. Saturation for GI consultation is also appropriate. Evaluation of her upper GI tract anatomy will be of use unless we can get hold of her old information from the other facility (2) Syncope and collapse Status: Acute Comment: No further episodes. This was undoubtedly due to critical anemia. She should get better as we move forward (3) Bipolar affective disorder in remission Status: Chronic Comment: Well-controlled and compensated on medications I would continue the regimen she had as she presented to the hospital (4) Iron (Fe) deficiency anemia Status: Chronic Comment: I am in agreement with the hematology recommendations for 5 days of IV iron. I would not necessarily count on her GI tract being able to absorb oral iron well. Regarding the need for transfusions I defer off to hematology Qualifiers: Iron deficiency anemia type: unspecified iron deficiency Qualified Code: D50.9 - Iron deficiency anemia, unspecified iron deficiency anemia type (5) History of bariatric surgery Status: Chronic Comment: This is the cause of multiple issues for her. 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 Exam/Review of Systems Vital Signs Vitals Vital Signs Date Time Temp Pulse Resp B/P Pulse Ox O2 Delivery O2 Flow Rate FiO2 5/30/17 12:12 85 10/27/16 11:44 98.7 20 94/59 100 10/25/16 01:34 Room Air Intake and Output 10/26/16 10/26/16 10/27/16 15:00 23:00 07:00 Intake Total 800 ml 650 ml Output Total 3 ml Balance 797 ml 650 ml Exam Constitutional: alert, oriented Respiratory: clear to auscultation, normal air movement Cardiovascular: nl pulses, regular rate and rhythm Results Result Diagram: 10/27/1628 10/27/1628 Results 24 hrs Laboratory Tests Test 10/26/16 17:30 10/26/16 22:58 10/27/16 05:28 Stool Occult Blood POSITIVE Urine Opiates Screen Negative Urine Barbiturates Negative Urine Amphetamines Screen Negative Urine Benzodiazepines Screen Negative Urine Cocaine Screen Negative Urine Cannabinoids Negative Absolute Reticulocyte Count 0.057 Percent Reticulocyte Count 1.9 H White Blood Count 5.6 Red Blood Count 2.65 L Hemoglobin 7.5 L Hematocrit 22.6 L Mean Corpuscular Volume 85.3 Mean Corpuscular Hemoglobin 28.3 L Mean Corpuscular Hemoglobin Concent 33.2 Red Cell Distribution Width 13.6 Platelet Count 164 Mean Platelet Volume 10.0 Neutrophils % 54.1 Lymphocytes % 38.4 Monocytes % 5.7 Eosinophils % 0.9 Basophils % 0.5 Nucleated Red Blood Cells % 0.0 Neutrophils # 3.1 Lymphocytes # 2.2 Monocytes # 0.3 Eosinophils # 0.1 Basophils # 0.0 Nucleated Red Blood Cells # 0.0 Sodium Level 138 Potassium Level 3.9 Chloride Level 114 H Carbon Dioxide Level 26 Anion Gap 2 L Blood Urea Nitrogen 18 Creatinine 0.74 Glucose Level 85 Calcium Level 7.6 L Phosphorus Level 3.6 Magnesium Level 1.8 Vitamin B12 Level 958 H Medications Medications Current Medications Ondansetron HCl (Zofran Inj) 4 mg Q6H PRN IV NAUSEA AND/OR VOMITING; Start at 00:00 Acetaminophen (Tylenol Tab) 650 mg Q6H PRN PO PAIN AND OR ELEVATED TEMP Last administered on 10/26/16 17:26; Admin Dose 650 MG; Start 10/25/16 at 00:00 Bupropion HCl (Wellbutrin Xl) 300 mg DAILY PO Last administered on 10/27/16 08 :46; Admin Dose 300 MG; Start 10/25/16 at 09:00 Escitalopram Oxalate (Lexapro) 20 mg DAILY PO Last administered on 10/27/16 08 :47; Admin Dose 20 MG; Start 10/25/16 at 09:00 Lamotrigine (Lamictal) 200 mg DAILY PO Last administered on 10/27/16 08:47; Admin Dose 200 MG; Start 10/25/16 at 09:00 Multivitamins Therapeutic 1 tab 1 tab DAILY PO Last administered on 10/27/16 08:47; Admin Dose 1 TAB; Start 10/26/16 at 09:30 Ferric Sodium Gluconate Complex/ Sodium Chloride (Ferrlecit/NS) 110 ml @ 110 mls/hr Q24H IVPB ; Start 10/27/16 at 13:00; Stop 10/30/16 at 13:59 Cyanocobalamin (Vitamin B12 Inj) 1,000 mcg DAILY IM Last administered on 08:46; Admin Dose 1,000 MCG; Start 10/27/16 at 09:00; Stop 11/02/16 at 09:01 Polyethylene Glycol (Miralax) 17 gm DAILY PO Last administered on 10/27/16 12: 26; Admin Dose 17 GM; Start 10/27/16 at 11:30 Sucralfate (Carafate) 1 gm QID PO ; Start 10/27/16 at 17:00; Status UNV Famotidine (Pepcid) 20 mg BID PO ; Start 10/27/16 at 21:00; Status ELIZABETH BABB MD October 27, 2016 14:16
[2016-10-27] MEDS: SOD FERRIC GLUC COMPLX 125 MG in SOD CHLORIDE 0.9% 100 ML IVPB SCH ×2 (14:27→19:50)
--- NOTE | 2016-10-27 14:49 | RADRPT ---
Echocardiogram Report Patient Name: ALEXA DAVIS Gender: Female Date: 1980 Study Date: 26-Oct-2016 Product Mgr: [facility] Location: [id number] Ref. Physician: EAN TURPIN Quality: Adequate Procedures: Transthoracic echocardiogram with complete 2D, M-Mode, and doppler examination. Indications: Syncope. 2D/M Mode Doppler Measurement Value Normal Ranges Measurement Value Normal Ranges LVIDd 2D 4.3 3.5 - 5.6 cm AV Peak Angel 1.4 m/sec LVIDs 2D 3.2 2.1 - 4.1 cm AV Peak PG 8.2 mmHg LVPWd 2D 0.9 0.6 - 1.1 cm LVOT Peak Angel 1.1 m/sec IVSd 2D 0.9 0.6 - 1.1 cm LVOT Peak PG 5.1 mmHg AoR Diam 2D 2.4 2.0 - 3.7 cm MV E Peak Angel 0.9 m/sec EDV 2D 83.3 cm3 MV A Peak Angel 0.4 m/sec ESV 2D 31.3 cm3 MV E/A 2.2 LA Dimen 2D 3.3 2.3 - 4.0 cm MV Decel Time 143 msec MV Decel [place] 6 MV E/A 2.2 Findings Left Ventricle: Normal left ventricular systolic function. Normal left ventricular cavity size. Normal left ventricular wall thickness. Ejection fraction is visually estimated at 60 %. Tissue Doppler/Mitral Doppler indices are within normal limits. Right Ventricle: Normal right ventricular size. Normal right ventricular systolic function. Left Atrium: The left atrium is normal in size. Right Atrium: The right atrium is normal in size. Mitral Valve: Normal appearance and function of the mitral valve with trace physiologic regurgitation. Aortic Valve: Normal appearance of the aortic valve. No significant aortic stenosis or insufficiency. Tricuspid Valve: Normal appearance and function of the tricuspid valve with trace physiologic regurgitation. Pulmonic Valve: Normal pulmonic valve appearance. There is trace pulmonic regurgitation. Pericardium: Normal pericardium with no significant pericardial effusion. Aorta: Normal aortic root. IVC: Normal size and normal respiratory collapse consistent with normal right atrial pressure. Conclusions 1.Normal left ventricular systolic function. Normal left ventricular cavity size. Normal left ventricular wall thickness. Ejection fraction is visually estimated at 60 %. Tissue Doppler/Mitral Doppler indices are within normal limits. 2.Normal right ventricular size. Normal right ventricular systolic function. 3.The left atrium is normal in size. 4.The right atrium is normal in size. 5.No significant valvular stenosis or regurgitation seen. 6.Normal pericardium with no significant pericardial effusion. Electronically Signed By: Adriel Cervantes 27-Oct-2016 14:49:00 -0700 Patient Name: ALEXA DAVIS Study Date: 26-Oct-2016 [id number]
--- NOTE | 2016-10-27 15:28 | CONS ---
Date/Time of Note Date/Time of Note DATE: 10/27/16 TIME: 15:15 Assessment/Plan Assessment/Plan Additional Assessment/Plan Assessment * Anemia Upper GI bleed vs iron deficiency vs others * History of /Bariatric surgery gastric fundoplication sec to GERD * History of multiple esophageal endoscopy and dilation Plan * PPI * monitor hemoglobin and hematocrit q 6 and transfuse 1 unit of PRBC if hemoglobin <7.5 2units PRBC hemoglobin less than7 * EGD risks and benefit explained to patient and agreed with planned procedure Consultation Date/Type/Reason Admit Date/Time October 24, 2016 at 19:35 Date of Consultation: October 27, 2016 Type of Consultation: Gastroenterology Reason for Consultation stool ob positive x2 Referring Provider: RUDDY BLOOD Hx of Present Illness 36 y/o female with past medical history of gastric fundoplication secondary to GERD(2016),multiple dilation of esophageal stricture .presented to emergency room complaining of syncope>patient complains of multiple episodes of syncope, with associated dizziness,body weakness.She denies any history of hematemesis, hematochezia,chest pain,shortness of breath ,nausea or vomiting. Emergency room course revealed,hemoglobin 6.9 wbc 5.2.Patient was subsequently admitted and received blood transfusion .Stool for occult blood is positive hence referred for evaluation.Patient tolerating solid foods,denies abdominal pain nor hematemesis nor hematochezia Constitutional: disoriented, other (weak), poor po Eyes: no complaints ENT: no complaints, other (headache) Respiratory: shortness of breath Cardiovascular: no complaints Gastrointestinal: no complaints (Specifically denies melena or bright red blood per rectum) Genitourinary: no complaints Musculoskeletal: bone/joint pain, no complaints Skin: no complaints Neurologic: no complaints Endocrine: no complaints (Specifically denies orthostatic symptoms also denies any possible exposure to steroids) Psychological: no complaints Past Medical History Medical History: GERD Past Surgical History Past Surgical Hx: endoscopy, other (fundoplication sec to gerd) Family History Significant Family History: no pertinent family hx Social History Alcohol Use: rarely Smoking Status: Never smoker Drug Use: none Exam/Review of Systems Vital Signs Vitals Vital Signs Date Time Temp Pulse Resp B/P Pulse Ox O2 Delivery O2 Flow Rate FiO2 10/27/16 12:12 85 10/27/16 11:44 98.7 20 94/59 100 10/25/16 01:34 Room Air Intake and Output 10/26/16 10/26/16 10/27/16 15:00 23:00 07:00 Intake Total 800 ml 650 ml Output Total 3 ml Balance 797 ml 650 ml Exam Constitutional: alert, oriented, well developed Psych: nl mood/affect, no complaints Head: atraumatic, normocephalic Eyes: EOMI, PERRL, nl conjunctiva, nl lids, nl sclera ENMT: nl external ears & nose, nl lips & teeth, nl nasal mucosa & septum Neck: non-tender, supple Respiratory: clear to auscultation, normal air movement Cardiovascular: nl pulses, regular rate and rhythm Gastrointestinal: nl liver, spleen, non-tender, soft Musculoskeletal: nl extremities to inspection, nl gait and stance Extremities: normal pulses Neurological: FAMILY [employer]ACTITIONER II-XII intact, nl mental status, nl speech, nl strength Skin: nl turgor, No rash or lesions Lymph: nl lymph nodes Results Result Diagram: 10/27/1628 10/27/16 0528 Results 24 hrs Laboratory Tests Test 10/26/16 17:30 10/26/16 22:58 10/27/16 05:28 Stool Occult Blood POSITIVE Urine Opiates Screen Negative Urine Barbiturates Negative Urine Amphetamines Screen Negative Urine Benzodiazepines Screen Negative Urine Cocaine Screen Negative Urine Cannabinoids Negative Absolute Reticulocyte Count 0.057 Percent Reticulocyte Count 1.9 H White Blood Count 5.6 Red Blood Count 2.65 L Hemoglobin 7.5 L Hematocrit 22.6 L Mean Corpuscular Volume 85.3 Mean Corpuscular Hemoglobin 28.3 L Mean Corpuscular Hemoglobin Concent 33.2 Red Cell Distribution Width 13.6 Platelet Count 164 Mean Platelet Volume 10.0 Neutrophils % 54.1 Lymphocytes % 38.4 Monocytes % 5.7 Eosinophils % 0.9 Basophils % 0.5 Nucleated Red Blood Cells % 0.0 Neutrophils # 3.1 Lymphocytes # 2.2 Monocytes # 0.3 Eosinophils # 0.1 Basophils # 0.0 Nucleated Red Blood Cells # 0.0 Sodium Level 138 Potassium Level 3.9 Chloride Level 114 H Carbon Dioxide Level 26 Anion Gap 2 L Blood Urea Nitrogen 18 Creatinine 0.74 Glucose Level 85 Calcium Level 7.6 L Phosphorus Level 3.6 Magnesium Level 1.8 Vitamin B12 Level 958 H Medications Medications Current Medications Ondansetron HCl (Zofran Inj) 4 mg Q6H PRN IV NAUSEA AND/OR VOMITING; Start at 00:00 Acetaminophen (Tylenol Tab) 650 mg Q6H PRN PO PAIN AND OR ELEVATED TEMP Last administered on 10/26/16 17:26; Admin Dose 650 MG; Start 10/25/16 at 00:00 Bupropion HCl (Wellbutrin Xl) 300 mg DAILY PO Last administered on 10/27/16 08 :46; Admin Dose 300 MG; Start 10/25/16 at 09:00 Escitalopram Oxalate (Lexapro) 20 mg DAILY PO Last administered on 10/27/16 08 :47; Admin Dose 20 MG; Start 10/25/16 at 09:00 Lamotrigine (Lamictal) 200 mg DAILY PO Last administered on 10/27/16 08:47; Admin Dose 200 MG; Start 10/25/16 at 09:00 Multivitamins Therapeutic 1 tab 1 tab DAILY PO Last administered on 10/27/16 08:47; Admin Dose 1 TAB; Start 10/26/16 at 09:30 Ferric Sodium Gluconate Complex/ Sodium Chloride (Ferrlecit/NS) 110 ml @ 110 mls/hr Q24H IVPB ; Start 10/27/16 at 13:00; Stop 10/30/16 at 13:59 Cyanocobalamin (Vitamin B12 Inj) 1,000 mcg DAILY IM Last administered on 08:46; Admin Dose 1,000 MCG; Start 10/27/16 at 09:00; Stop 11/02/16 at 09:01 Polyethylene Glycol (Miralax) 17 gm DAILY PO Last administered on 10/27/16 12: 26; Admin Dose 17 GM; Start 10/27/16 at 11:30 Sucralfate (Carafate) 1 gm QID PO ; Start 10/27/16 at 17:00 Famotidine (Pepcid) 20 mg BID PO ; Start 10/27/16 at 21:00 TINO LEWIS MD October 27, 2016 15:28
[2016-10-27] MEDS: SUCRALFATE 1 GM TAB PO SCH ×2 (17:03→21:01)
[2016-10-27 20:13] LABS: HEMATOCRIT 29.3 % (37.0-47.0); HEMOGLOBIN 10.1 g/dl (12.0-16.0)
[2016-10-27] MEDS: FAMOTIDINE 20 MG TAB PO SCH (21:02)
[2016-10-28] VITALS (14 sets, daily range): BP systolic 91–118; BP diastolic 49–74; PULSE 68–86; RESP 14–26
[2016-10-28 01:36] LABS: HEMATOCRIT 28.1 % (37.0-47.0); HEMOGLOBIN 9.7 g/dl (12.0-16.0)
[2016-10-28 06:41] LABS: ADD SCAN DIFF NO
[2016-10-28 07:09] LABS: CALCIUM 8.1 mg/dl (8.4-10.2); CREATININE 0.82 mg/dl (0.44-1.00); POTASSIUM 4.5 mmol/L (3.5-5.1)
[2016-10-28] MEDS: ESCITALOPRAM 10 MG TAB PO SCH (08:19)
[2016-10-28] MEDS: LAMOTRIGINE 100 MG TAB PO SCH (08:19)
[2016-10-28] MEDS: SUCRALFATE 1 GM TAB PO SCH ×4 (08:19→20:28)
[2016-10-28] MEDS: POLYETHYLENE GLYCOL 17 GM PACKET PO SCH (08:19)
[2016-10-28] MEDS: CYANOCOBALAMIN 1000 MCG INJ IM SCH (08:19)
[2016-10-28] MEDS: BUPROPION (XL) 150 MG TAB PO SCH (08:20)
[2016-10-28] MEDS: MULTIVITAMINS THERAPEUTIC TAB PO SCH ×3 (08:20→20:28)
[2016-10-28] MEDS: FAMOTIDINE 20 MG TAB PO SCH ×2 (08:20→20:29)
--- NOTE | 2016-10-28 08:54 | CONS ---
Date/Time of Note Date/Time of Note DATE: 10/28/16 TIME: 08:49 Assessment/Plan Assessment/Plan Chief Complaint/Hosp Course Michael 36-year-old right-handed single female admitted with syncope. This is a new phenomenon for this woman. She has otherwise been in generally good health with specific caveats to be seen in the past medical history. Her history is as documented. Please note that she has not been taking her medications for the bariatric surgery gastric bypass she had in the past. This means she has not been on B12 she has not been on multiple vitamins she has not been on calcium and she has not been on vitamin D. She denies any prior treatment with steroids the best of her knowledge Problems: (1) History of bariatric surgery Status: Chronic Comment: This is an important issue and has led gradually to current state. The post op supplemnets are in the medication order set as of now (2) Malabsorption Status: Chronic Comment: Surgically induced Qualifiers: Intestinal malabsorption type: other Qualified Code: K90.89 - Other specified intestinal malabsorption (3) Vitamin B 12 deficiency Status: Chronic Comment: replacing (4) Bipolar affective disorder in remission Status: Chronic Comment: Good control on present regimen (5) History of esophageal stricture Status: Chronic Comment: For EGD tonite (6) Iron (Fe) deficiency anemia Status: Chronic Comment: being repleted Qualifiers: Iron deficiency anemia type: unspecified iron deficiency Qualified Code: D50.9 - Iron deficiency anemia, unspecified iron deficiency anemia type (7) Syncope and collapse Status: Resolved Comment: Resolving Consultation Date/Type/Reason Admit Date/Time October 24, 2016 at 19:35 Initial Consult Date 10/26/16 Type of Consultation: Endocrinology Reason for Consultation Metabolic disturbance, malabsorption post bariatric surgery Referring Provider: RUDDY BLOOD 24 HR Interval Summary Constitutional: no complaints Detailed Summary ENT: no complaints Respiratory: no complaints Cardiovascular: no complaints Gastrointestinal: no complaints Genitourinary: no complaints Musculoskeletal: no complaints Exam/Review of Systems Vital Signs Vitals Vital Signs Date Time Temp Pulse Resp B/P Pulse Ox O2 Delivery O2 Flow Rate FiO2 10/28/16 08:25 68 10/28/16 07:44 98.6 18 91/55 100 10/25/16 01:34 Room Air Intake and Output 10/27/16 10/27/16 10/28/16 15:00 23:00 07:00 Intake Total 1410 ml 200 ml Balance 1410 ml 200 ml Exam Constitutional: alert, oriented Neck: non-tender, supple Respiratory: clear to auscultation, normal air movement Cardiovascular: nl pulses, regular rate and rhythm Gastrointestinal: nl liver, spleen, non-tender, soft Results Result Diagram: 10/28/16 0048 10/28/16 0620 Results 24 hrs Laboratory Tests Test 10/27/16 20:00 10/28/16 00:48 10/28/16 06:20 Hemoglobin 10.1 #L 9.7 L Hematocrit 29.3 #L 28.1 L Sodium Level 134 L Potassium Level 4.5 Chloride Level 107 Carbon Dioxide Level 26 Anion Gap 6 L Blood Urea Nitrogen 15 Creatinine 0.82 Glucose Level 87 Calcium Level 8.1 L Vitamin B12 Level 997 H Medications Medications Current Medications Ondansetron HCl (Zofran Inj) 4 mg Q6H PRN IV NAUSEA AND/OR VOMITING; Start at 00:00 Acetaminophen (Tylenol Tab) 650 mg Q6H PRN PO PAIN AND OR ELEVATED TEMP Last administered on 10/26/16 17:26; Admin Dose 650 MG; Start 10/25/16 at 00:00 Bupropion HCl (Wellbutrin Xl) 300 mg DAILY PO Last administered on 10/28/16 08 :20; Admin Dose 300 MG; Start 10/25/16 at 09:00 Escitalopram Oxalate (Lexapro) 20 mg DAILY PO Last administered on 10/28/16 08 :19; Admin Dose 20 MG; Start 10/25/16 at 09:00 Lamotrigine 200 mg 200 mg DAILY PO Last administered on 10/28/16 08:19; Admin Dose 200 MG; Start 10/25/16 at 09:00 Ferric Sodium Gluconate Complex/ Sodium Chloride (Ferrlecit/NS) 110 ml @ 110 mls/hr Q24H IVPB Last administered on 10/27/16 19:50; Admin Dose 110 MLS/HR; Start 10/27/16 at 13:00; Stop 10/30/16 at 13:59 Cyanocobalamin (Vitamin B12 Inj) 1,000 mcg DAILY IM Last administered on 08:19; Admin Dose 1,000 MCG; Start 10/27/16 at 09:00; Stop 11/02/16 at 09:01 Polyethylene Glycol (Miralax) 17 gm DAILY PO Last administered on 10/27/16 12: 26; Admin Dose 17 GM; Start 10/27/16 at 11:30 Sucralfate (Carafate) 1 gm QID PO Last administered on 10/28/16 08:19; Admin Dose 1 GM; Start 10/27/16 at 17:00 Famotidine (Pepcid) 20 mg BID PO Last administered on 10/28/16 08:20; Admin Dose 20 MG; Start 10/27/16 at 21:00 Multivitamins Therapeutic (Theragran) 1 tab BID PO ; Start 10/28/16 at 21:00; Status UNV Calcium Carbonate (Oyster Shell Calcium) 1.25 gm BID GTB ; Start 10/28/16 at 09: 00; Status UNV ELIZABETH TRAORE MD October 28, 2016 08:54
[2016-10-28] MEDS: CALCIUM CARBONATE 1.25 GM TAB PO SCH ×2 (09:56→20:28)
[2016-10-28] MEDS: THIAMINE 100 MG TAB PO SCH (09:57)
[2016-10-28 10:50] LABS: BASOPHILS % 0.3 % (0.0-2.0); EOSINOPHILS # 0.1 10^3/ul (0.0-0.5); EOSINOPHILS % 1.3 % (0.0-7.0); HEMOGLOBIN 9.4 g/dl (12.0-16.0); LYMPHOCYTES # 2.3 10^3/ul (0.8-2.9); LYMPHOCYTES % 32.2 % (15.0-51.0); MEAN CORPUSCULAR HEMOGLOBIN 29.3 pg (29.0-33.0); MEAN CORPUSCULAR HGB CONC 33.6 g/dl (32.0-37.0); MEAN CORPUSCULAR VOLUME 87.2 fl (82.0-101.0); MONOCYTE # 0.5 10^3/ul (0.3-0.9); MONOCYTES % 6.7 % (0.0-11.0); NEUTROPHIL # 4.1 10^3/ul (1.6-7.5); NEUTROPHILS % 59.4 % (39.0-77.0); PLATELET COUNT 174 10^3/UL (140-415); RED BLOOD COUNT 3.21 10^6/ul (4.20-5.40)
--- NOTE | 2016-10-28 11:55 | PN ---
Date/Time of Note Date/Time of Note DATE: 10/28/16 TIME: 11:55 Assessment/Plan VTE Prophylaxis VTE Prophylaxis Intervention: SCD's Lines/Catheters IV [facility] Urinary Cath still in place: No Assessment/Plan Assessment/Plan 1. Syncope-multiple episodes with orthostatic hypotension and tachycardia likely secondary to an acute anemia: no further episodes so far 2. Severe symptomatic Normocytic anemia? multifactorial from the following 3. Iron deficiency likely 2/2 #5 4. Severe B12 Deficiency likely 2/2 #5 5. S/p Gastric bypass 6. Probable GI bleed s/p EGD 09/28 showing the followin. Mild distal esophagitis. No evidence of fundoplication present. 2. Post-bariatric surgery, Marisabel-en-Y anastomosis with patent anastomosis. No evidence of esophageal stricture. Mild gastritis, rule out Helicobacter pylori infection 3. Enteroscopy normal to full insertion. 7. Subclinical Hypothyroidism: no intervention / monitoring per Endo 8. History of bipolar disorder: Stable Continue home meds 9. History of gastroesophageal reflux disease with esophageal stricture- that seems to have resolved PLAN: * Patient is planned for colonoscopy to further evaluate GI bleed * F/u conclusions * Continue IV Iron and subcut B12 * Continue supportive care Prophylaxis: SCDs Subjective 24 Hr Interval Summary Free Text/Dictation Patient sent. Reporting dark tarry stools with streaks of blood. Planned for endoscopy today. Exam/Review of Systems Vital Signs Vitals Vital Signs Date Time Temp Pulse Resp B/P Pulse Ox O2 Delivery O2 Flow Rate FiO2 10/28/16 11:32 98.4 88 18 118/57 99 10/25/16 01:34 Room Air Intake and Output 10/27/16 10/27/16 10/28/16 15:00 23:00 07:00 Intake Total 1410 ml 200 ml Balance 1410 ml 200 ml Exam GENERAL: Patient is alert, oriented x 3, in no apparent distress; does not appear acutely or chronically ill. Patient is able to sit up unassisted.Patient makes good eye contact, is conversant, interactive, coherent. Patient appears calm and comfortable and is able to follow commands. HEENT: Oropharynx is clear. There is no carotid bruit, no masses. Patient's pupils are equal, round and reactive to light bilaterally. Extraocular motions are intact. There is no scleral icterus. There is no facial asymmetry. Patient has mild conjunctival pallor NECK: Supple. LUNGS: Clear to auscultation bilaterally with good air entry. No Wheezes or crackles. HEART: S1, S2. No murmur, gallops or rubs. Regular rate and rhythm. ABDOMEN: Soft, nontender. Normoactive bowel sounds. There are no stigmata of chronic liver disease. BACK: no costovertebral angle tenderness. GENITOURINARY: Deferred. EXTREMITIES: No edema. There is no cyanosis, clubbing. There are 2+ pulses bilaterally distally. NEUROLOGIC: The patient has no lateralizing signs. Cranial nerves II-XII are intact. SKIN: Otherwise, unremarkable. Results Result Diagram: 10/28/16 0610/28/16619 Results 24 hrs Laboratory Tests Test 10/27/16 20:00 10/28/16 00:48 10/28/16 06:20 Hemoglobin 10.1 #L 9.7 L 9.4 L Hematocrit 29.3 #L 28.1 L 28.0 L White Blood Count 7.0 # Red Blood Count 3.21 #L Mean Corpuscular Volume 87.2 Mean Corpuscular Hemoglobin 29.3 Mean Corpuscular Hemoglobin Concent 33.6 Red Cell Distribution Width 14.0 Platelet Count 174 Mean Platelet Volume 10.0 Neutrophils % 59.4 Lymphocytes % 32.2 Monocytes % 6.7 Eosinophils % 1.3 Basophils % 0.3 Nucleated Red Blood Cells % 0.0 Neutrophils # 4.1 Lymphocytes # 2.3 Monocytes # 0.5 Eosinophils # 0.1 Basophils # 0.0 Nucleated Red Blood Cells # 0.0 Sodium Level 134 L Potassium Level 4.5 Chloride Level 107 Carbon Dioxide Level 26 Anion Gap 6 L Blood Urea Nitrogen 15 Creatinine 0.82 Glucose Level 87 Calcium Level 8.1 L Vitamin B12 Level 997 H Medications Medications Current Medications Ondansetron HCl (Zofran Inj) 4 mg Q6H PRN IV NAUSEA AND/OR VOMITING; Start at 00:00 Acetaminophen (Tylenol Tab) 650 mg Q6H PRN PO PAIN AND OR ELEVATED TEMP Last administered on 10/26/16 17:26; Admin Dose 650 MG; Start 10/25/16 at 00:00 Bupropion HCl (Wellbutrin Xl) 300 mg DAILY PO Last administered on 10/28/16 08 :20; Admin Dose 300 MG; Start 10/25/16 at 09:00 Escitalopram Oxalate (Lexapro) 20 mg DAILY PO Last administered on 10/28/16 08 :19; Admin Dose 20 MG; Start 10/25/16 at 09:00 Lamotrigine 200 mg 200 mg DAILY PO Last administered on 10/28/16 08:19; Admin Dose 200 MG; Start 10/25/16 at 09:00 Ferric Sodium Gluconate Complex/ Sodium Chloride (Ferrlecit/NS) 110 ml @ 110 mls/hr Q24H IVPB Last administered on 10/27/16 19:50; Admin Dose 110 MLS/HR; Start 10/27/16 at 13:00; Stop 10/30/16 at 13:59 Cyanocobalamin (Vitamin B12 Inj) 1,000 mcg DAILY IM Last administered on 08:19; Admin Dose 1,000 MCG; Start 10/27/16 at 09:00; Stop 11/02/16 at 09:01 Polyethylene Glycol (Miralax) 17 gm DAILY PO Last administered on 10/27/16 12: 26; Admin Dose 17 GM; Start 10/27/16 at 11:30 Sucralfate (Carafate) 1 gm QID PO Last administered on 10/28/16 08:19; Admin Dose 1 GM; Start 10/27/16 at 17:00 Famotidine (Pepcid) 20 mg BID PO Last administered on 10/28/16 08:20; Admin Dose 20 MG; Start 10/27/16 at 21:00 Multivitamins Therapeutic (Theragran) 1 tab BID PO ; Start 10/28/16 at 10:00 Calcium Carbonate (Oyster Shell Calcium) 1.25 gm BID PO ; Start 10/28/16 at 10: 00 Thiamine HCl (Vitamin B1) 100 mg DAILY PO ; Start 10/28/16 at 10:00 Procedures Procedures PROCEDURE: US Pelvis CLINICAL INDICATION: Menorrhagia. Anemia. TECHNIQUE: Sonographic evaluation of the pelvis was performed utilizing both transabdominal and transvaginal technique. Curved array transabdominal transducer technique as well as a high frequency endovaginal probe was utilized. Images were reviewed on the high-resolution PACS workstation. COMPARISON: No prior studies are available for comparison. FINDINGS: The uterus measures 7.85 cm x 3.33 cm x 3.79 cm in dimension. The uterus is anteverted in normal position. The endometrium measures 0.98 cm in thickness. The right ovary measures 3.1 cm x 1.75 cm x 1.71 cm in dimension. The left ovary measures 4.26 cm x 2.92 cm x 2.49 cm in dimension. There is a 1.9 x 1.6 x 1.8 cm left ovarian cystic lesion with diffuse low level internal echoes. There is normal flow demonstrated within the ovaries. There are no adnexal masses. There is no significant free fluid within the pelvis. IMPRESSION: 1. Complicated left ovarian cystic lesion measuring 1.9 cm, which may represent a hemorrhagic cyst or endometrioma. Follow-up pelvic ultrasound and 6 or 12 weeks is recommended. RPTAT: EE .Jeremiah Rodriguez MD, MD Date Time Electronically viewed and signed by .Jeremiah Rodriguez MD, MD on 10/26/2016 17:40 .P/ CC: RUDDY BLOOD B[place] M. October 28, 2016 11:55
--- NOTE | 2016-10-28 11:56 | EN ---
Date/Time of Note Date/Time of Note DATE: 10/28/16 TIME: 11:55 Event Note Medicine Medicine Event Note PROGRESS NOTE DATE OF SERVICE: 10/27/16 SUBJECTIVE: patient reports black stools with steak of blood. Stool OB positive. OBJECTIVE: Vital Signs Date Time Temp Pulse Resp B/P Pulse Ox O2 Delivery O2 Flow Rate FiO2 10/27/16 12:12 85 10/27/16 11:44 98.7 20 94/59 100 10/25/16 01:34 Room Air Intake and Output 10/26/16 10/26/16 10/27/16 15:00 23:00 07:00 Intake Total 800 ml 650 ml Output Total 3 ml Balance 797 ml 650 ml Exam Constitutional: alert, oriented, well developed Psych: nl mood/affect, no complaints Head: atraumatic, normocephalic Eyes: EOMI, PERRL, nl conjunctiva, nl lids, nl sclera ENMT: nl external ears & nose, nl lips & teeth, nl nasal mucosa & septum Neck: non-tender, supple Respiratory: clear to auscultation, normal air movement Cardiovascular: nl pulses, regular rate and rhythm Gastrointestinal: non-tender, soft Musculoskeletal: nl extremities to inspection, nl gait and stance Extremities: normal pulses Neurological: nl mental status, nl speech, nl strength Skin: No rash or lesions Results Result Diagram: 10/27/1628 10/27/16 0528 Results 24 hrs Laboratory Tests Test 10/26/16 17:30 10/26/16 22:58 10/27/16 05:28 Stool Occult Blood POSITIVE Urine Opiates Screen Negative Urine Barbiturates Negative Urine Amphetamines Screen Negative Urine Benzodiazepines Screen Negative Urine Cocaine Screen Negative Urine Cannabinoids Negative Absolute Reticulocyte Count 0.057 Percent Reticulocyte Count 1.9 H White Blood Count 5.6 Red Blood Count 2.65 L Hemoglobin 7.5 L Hematocrit 22.6 L Mean Corpuscular Volume 85.3 Mean Corpuscular Hemoglobin 28.3 L Mean Corpuscular Hemoglobin Concent 33.2 Red Cell Distribution Width 13.6 Platelet Count 164 Mean Platelet Volume 10.0 Neutrophils % 54.1 Lymphocytes % 38.4 Monocytes % 5.7 Eosinophils % 0.9 Basophils % 0.5 Nucleated Red Blood Cells % 0.0 Neutrophils # 3.1 Lymphocytes # 2.2 Monocytes # 0.3 Eosinophils # 0.1 Basophils # 0.0 Nucleated Red Blood Cells # 0.0 Sodium Level 138 Potassium Level 3.9 Chloride Level 114 H Carbon Dioxide Level 26 Anion Gap 2 L Blood Urea Nitrogen 18 Creatinine 0.74 Glucose Level 85 Calcium Level 7.6 L Phosphorus Level 3.6 Magnesium Level 1.8 Vitamin B12 Level 958 H Medications Medications Current Medications Ondansetron HCl (Zofran Inj) 4 mg Q6H PRN IV NAUSEA AND/OR VOMITING; Start at 00:00 Acetaminophen (Tylenol Tab) 650 mg Q6H PRN PO PAIN AND OR ELEVATED TEMP Last administered on 10/26/16 17:26; Admin Dose 650 MG; Start 10/25/16 at 00:00 Bupropion HCl (Wellbutrin Xl) 300 mg DAILY PO Last administered on 10/27/16 08 :46; Admin Dose 300 MG; Start 10/25/16 at 09:00 Escitalopram Oxalate (Lexapro) 20 mg DAILY PO Last administered on 10/27/16 08 :47; Admin Dose 20 MG; Start 10/25/16 at 09:00 Lamotrigine (Lamictal) 200 mg DAILY PO Last administered on 10/27/16 08:47; Admin Dose 200 MG; Start 10/25/16 at 09:00 Multivitamins Therapeutic 1 tab 1 tab DAILY PO Last administered on 10/27/16 08:47; Admin Dose 1 TAB; Start 10/26/16 at 09:30 Ferric Sodium Gluconate Complex/ Sodium Chloride (Ferrlecit/NS) 110 ml @ 110 mls/hr Q24H IVPB ; Start 10/27/16 at 13:00; Stop 10/30/16 at 13:59 Cyanocobalamin (Vitamin B12 Inj) 1,000 mcg DAILY IM Last administered on 08:46; Admin Dose 1,000 MCG; Start 10/27/16 at 09:00; Stop 11/02/16 at 09:01 Polyethylene Glycol (Miralax) 17 gm DAILY PO Last administered on 10/27/16 12: 26; Admin Dose 17 GM; Start 10/27/16 at 11:30 Sucralfate (Carafate) 1 gm QID PO ; Start 10/27/16 at 17:00 Famotidine (Pepcid) 20 mg BID PO ; Start 10/27/16 at 21:00 ASSESSMENT: 1. Syncope-multiple episodes with orthostatic hypotension and tachycardia likely secondary to an acute anemia: no further episodes so far 2. Severe symptomatic Normocytic anemia? multifactorial from the following 3. Iron deficiency likely 2/2 #5 4. Severe B12 Deficiency likely 2/2 #5 5. S/p Gastric bypass 6. Probable GI bleed with blood in stools and black stools 7. Subclinical Hypothyroidism: no intervention / monitoring per Endo 8. History of bipolar disorder: Stable Continue home meds 9. History of gastroesophageal reflux disease with esophageal stricture PLAN: * continue iron and 1b12 supplementation * GI consult. RUDDY BLOOD October 28, 2016 11:56
[2016-10-28] MEDS: SOD FERRIC GLUC COMPLX 125 MG in SOD CHLORIDE 0.9% 100 ML IVPB SCH (12:38)
[2016-10-28 12:58] LABS: HEMATOCRIT 28.2 % (37.0-47.0); HEMOGLOBIN 9.3 g/dl (12.0-16.0)
--- NOTE | 2016-10-28 13:44 | CONS ---
Date/Time of Note Date/Time of Note DATE: 10/28/16 TIME: 13:40 Assessment/Plan Assessment/Plan Chief Complaint/Hosp Course 36 yo with severe anemia secondary to severe iron deficiency as well as Vitamin b12 deficiency. These are related to her gastric bypass from 2014 as it appears patient is not able to appropriately absorb essential nutrients. Give her low LDH and normal bilirubin it is unlikely patient is hemolyzing. Pt has received 5 units of PRBCs and her Hg is now around 10. She had a slightly drop in Hg from yesterday -agree with EGD to ensure no active bleeding given the slight drop in Hg from yesterday -continue with Vitamin b12 1000mcg q day x 7 days then 1x week for 4 week. She will then continue with q months dosage -check methylmalonic acid and homocysteine levels. -start folate 1 mg q day -cont IV iron x 5 days for now -continue to monitor Hg. Problems: Consultation Date/Type/Reason Admit Date/Time October 24, 2016 at 19:35 Initial Consult Date 10/26/16 Type of Consultation: Hematology Reason for Consultation iron deficiency and vitamin b12 deficiency anemia Referring Provider: RUDDY BLOOD 24 HR Interval Summary Free Text/Dictation pt continues on IV iron and Vitamin b12 injection Exam/Review of Systems Vital Signs Vitals Vital Signs Date Time Temp Pulse Resp B/P Pulse Ox O2 Delivery O2 Flow Rate FiO2 10/28/16 12:15 86 10/28/16 11:32 98.4 18 118/57 99 10/25/16 01:34 Room Air Intake and Output 10/27/16 10/27/16 10/28/16 15:00 23:00 07:00 Intake Total 1410 ml 200 ml Balance 1410 ml 200 ml Exam Constitutional: alert, oriented Psych: no complaints Head: atraumatic, normocephalic Eyes: nl conjunctiva ENMT: nl external ears & nose Neck: supple Respiratory: clear to auscultation Cardiovascular: nl pulses, regular rate and rhythm Gastrointestinal: soft Musculoskeletal: nl extremities to inspection, nl gait and stance Results Result Diagram: 10/28/16 1245 10/28/16 0620 Results 24 hrs Laboratory Tests Test 10/27/16 20:00 10/28/16 00:48 10/28/16 06:20 10/28/16 12:45 Hemoglobin 10.1 #L 9.7 L 9.4 L 9.3 L Hematocrit 29.3 #L 28.1 L 28.0 L 28.2 L White Blood Count 7.0 # Red Blood Count 3.21 #L Mean Corpuscular Volume 87.2 Mean Corpuscular Hemoglobin 29.3 Mean Corpuscular Hemoglobin Concent 33.6 Red Cell Distribution Width 14.0 Platelet Count 174 Mean Platelet Volume 10.0 Neutrophils % 59.4 Lymphocytes % 32.2 Monocytes % 6.7 Eosinophils % 1.3 Basophils % 0.3 Nucleated Red Blood Cells % 0.0 Neutrophils # 4.1 Lymphocytes # 2.3 Monocytes # 0.5 Eosinophils # 0.1 Basophils # 0.0 Nucleated Red Blood Cells # 0.0 Sodium Level 134 L Potassium Level 4.5 Chloride Level 107 Carbon Dioxide Level 26 Anion Gap 6 L Blood Urea Nitrogen 15 Creatinine 0.82 Glucose Level 87 Calcium Level 8.1 L Vitamin B12 Level 997 H Medications Medications Current Medications Ondansetron HCl (Zofran Inj) 4 mg Q6H PRN IV NAUSEA AND/OR VOMITING; Start at 00:00 Acetaminophen (Tylenol Tab) 650 mg Q6H PRN PO PAIN AND OR ELEVATED TEMP Last administered on 10/26/16 17:26; Admin Dose 650 MG; Start 10/25/16 at 00:00 Bupropion HCl (Wellbutrin Xl) 300 mg DAILY PO Last administered on 10/28/16 08 :20; Admin Dose 300 MG; Start 10/25/16 at 09:00 Escitalopram Oxalate (Lexapro) 20 mg DAILY PO Last administered on 10/28/16 08 :19; Admin Dose 20 MG; Start 10/25/16 at 09:00 Lamotrigine 200 mg 200 mg DAILY PO Last administered on 10/28/16 08:19; Admin Dose 200 MG; Start 10/25/16 at 09:00 Ferric Sodium Gluconate Complex/ Sodium Chloride (Ferrlecit/NS) 110 ml @ 110 mls/hr Q24H IVPB Last administered on 10/28/16 12:38; Admin Dose 110 MLS/HR; Start 10/27/16 at 13:00; Stop 10/30/16 at 13:59 Cyanocobalamin (Vitamin B12 Inj) 1,000 mcg DAILY IM Last administered on 08:19; Admin Dose 1,000 MCG; Start 10/27/16 at 09:00; Stop 11/02/16 at 09:01 Polyethylene Glycol (Miralax) 17 gm DAILY PO Last administered on 10/27/16 12: 26; Admin Dose 17 GM; Start 10/27/16 at 11:30 Sucralfate (Carafate) 1 gm QID PO Last administered on 10/28/16 08:19; Admin Dose 1 GM; Start 10/27/16 at 17:00 Famotidine (Pepcid) 20 mg BID PO Last administered on 10/28/16 08:20; Admin Dose 20 MG; Start 10/27/16 at 21:00 Multivitamins Therapeutic (Theragran) 1 tab BID PO ; Start 10/28/16 at 10:00 Calcium Carbonate (Oyster Shell Calcium) 1.25 gm BID PO ; Start 10/28/16 at 10: 00 Thiamine HCl (Vitamin B1) 100 mg DAILY PO ; Start 10/28/16 at 10:00 NAVNEET LOTT M.D. October 28, 2016 13:44
[2016-10-28] MEDS ORDERED: LIDOCAINE 2% (SDV) 5 ML INJ ONE (18:28)
[2016-10-28] MEDS ORDERED: PROPOFOL 20 ML ONE (18:28)
[2016-10-28] MEDS ORDERED: MIDAZOLAM 1 MG/ML 2 ML INJ ONE (18:28)
[2016-10-28] MEDS ORDERED: FENTAnyl 50 MCG/ML VIAL ONE (18:29)
[2016-10-28 18:31] LABS: ANA SCREEN POSITIVE (NEGATIVE)
[2016-10-28] MEDS ORDERED: BISACODYL (EC) 5 MG TAB PO ONE (19:00)
[2016-10-28] MEDS ORDERED: POLYETHYLENE GLYCOL 3350 119 GM POWDER PO ONE (20:00)
[2016-10-28] MEDS ORDERED: MAGNESIUM CITRATE 300 ML BTL PO ONE (20:00)
[2016-10-28 23:11] LABS: HEMATOCRIT 27.1 % (37.0-47.0); HEMOGLOBIN 9.2 g/dl (12.0-16.0)
[2016-10-29] VITALS (15 sets, daily range): BP systolic 83–108; BP diastolic 51–68; PULSE 79–101; RESP 11–20
--- NOTE | 2016-10-29 03:44 | GILP ---
DATE OF PROCEDURE: PROCEDURE: Esophagogastroduodenoscopy with biopsies. BRIEF HISTORY AND INDICATIONS: The patient is being evaluated for unexplained iron deficiency anemi a. The patient is status post initially fundoplication and subsequent to that bariatric surgery wit h what appears to be a Marisabel-en-Y anastomosis with gastric resection. PREMEDICATION: Monitored anesthesia care by anesthesiologist. SURGEON: Luis A Don MD TECHNIQUE: After informed consent, with the patient/relatives understanding the procedure, its indic ations, potential risks and complications, including but not limited to: allergic reaction, bleeding , perforation or infection, and after all pertinent questions were answered to the patient's satisfa ction, the patient/relatives signed witnessed informed consent. After informed consent with the patient in standard position, potential risks and complications as w ell as alternatives and after informed consent was obtained, the patient was placed in the left late ral decubitus, premedication was administered. Following this, the Olympus panendoscope was introdu gera and advanced under visual control and careful examination of the upper gastrointestinal tract, d isclosed the following findings. ESOPHAGUS: There is mild erythema and edema of the EG junction which is displaced approximately 1 c m. STOMACH: Upon entrance to the stomach air was insufflated, it became evident the patient had a dist al gastrectomy with end-to-side Marisabel-en-Y anastomosis. The gastric pouch measures approximately 6 c m and shows erythema of a moderate degree. Biopsies were obtained in a limited fashion. The anastomosis is patent. Small bowel examined to full insertion is unremarkable. The instrument was withdrawn reexamining the mucosa in detail. No additional abnormalities are note d. IMPRESSION: 1. Mild distal esophagitis. No evidence of fundoplication present. 2. Post-bariatric surgery, Marisabel-en-Y anastomosis with patent anastomosis. No evidence of esophagea l stricture. Mild gastritis, rule out Helicobacter pylori infection, biopsies obtained. 3. Enteroscopy normal to full insertion. PLAN: The patient will be treated with PPIs. Given her significant anemia and the report of tarry stools as well as episodic hematochezia, the patient should undergo colonoscopic examination. This will be planned for tomorrow. Further recommendation will depend on the patient's clinical course. Dictated By: LUIS A DON MS/NEVA Conf#: [id number] DID#: [id number]
[2016-10-29] MEDS ORDERED: POLYETHYLENE GLYCOL 3350 119 GM POWDER PO ONE (06:00)
[2016-10-29 06:21] LABS: ADD SCAN DIFF NO
[2016-10-29 06:25] LABS: BASOPHILS % 0.2 % (0.0-2.0); EOSINOPHILS # 0.1 10^3/ul (0.0-0.5); EOSINOPHILS % 1.2 % (0.0-7.0); HEMATOCRIT 27.9 % (37.0-47.0); HEMOGLOBIN 9.3 g/dl (12.0-16.0); LYMPHOCYTES # 1.9 10^3/ul (0.8-2.9); LYMPHOCYTES % 32.9 % (15.0-51.0); MEAN CORPUSCULAR HEMOGLOBIN 29.2 pg (29.0-33.0); MEAN CORPUSCULAR HGB CONC 33.3 g/dl (32.0-37.0); MEAN CORPUSCULAR VOLUME 87.5 fl (82.0-101.0); MEAN PLATELET VOLUME 9.8 fl (7.4-10.4); MONOCYTE # 0.4 10^3/ul (0.3-0.9); MONOCYTES % 6.3 % (0.0-11.0); NEUTROPHIL # 3.4 10^3/ul (1.6-7.5); NEUTROPHILS % 59.2 % (39.0-77.0); PLATELET COUNT 208 10^3/UL (140-415); RED BLOOD COUNT 3.19 10^6/ul (4.20-5.40); RED CELL DISTRIBUTION WIDTH 13.9 % (11.5-14.5); WHITE BLOOD COUNT 5.7 10^3/ul (4.8-10.8)
[2016-10-29 06:37] LABS: CALCIUM 8.1 mg/dl (8.4-10.2); CREATININE 0.79 mg/dl (0.44-1.00); POTASSIUM 4.1 mmol/L (3.5-5.1)
[2016-10-29] MEDS ORDERED: BISACODYL (EC) 5 MG TAB PO ONE (08:00)
--- NOTE | 2016-10-29 08:07 | CONS ---
Date/Time of Note Date/Time of Note DATE: 10/29/16 TIME: 08:03 Assessment/Plan Assessment/Plan Chief Complaint/Hosp Course 36 yo with severe anemia secondary to severe iron deficiency as well as Vitamin b12 deficiency. These are related to her gastric bypass from 2014 as it appears patient is not able to appropriately absorb essential nutrients. Give her low LDH and normal bilirubin it is unlikely patient is hemolyzing. Pt has received 5 units of PRBCs and her Hg is now around 10. She had a slightly drop in Hg from yesterday # Anemia -continue with Vitamin b12 1000mcg q day x 7 days total then 1x week for 4 week. She will then continue with q months dosage -check methylmalonic acid and homocysteine levels. -start folate 1 mg q day -cont IV iron x 5 days total -continue to monitor Hg. -f/u colonoscopy today #Gastritis -continue carafate and pepcid -start omeprazole 2mg q day Approximately 40 min were spent at patient's bedside and in coordination of her care Problems: Consultation Date/Type/Reason Admit Date/Time October 24, 2016 at 19:35 Initial Consult Date 10/26/16 Type of Consultation: Hematology Reason for Consultation anemia secondary to iron deficiency and vitamin b12 deficiency Referring Provider: RUDDY BLOOD 24 HR Interval Summary Free Text/Dictation pt had EGD done yesterday that revealed gastritis Exam/Review of Systems Vital Signs Vitals Vital Signs Date Time Temp Pulse Resp B/P Pulse Ox O2 Delivery O2 Flow Rate FiO2 10/29/16 07:26 98.1 79 16 98/56 100 10/28/16 19:24 Room Air Intake and Output 10/28/16 10/28/16 10/29/16 15:00 23:00 07:00 Intake Total 710 ml 2200 ml Balance 710 ml 2200 ml Exam Constitutional: alert, oriented Psych: no complaints Head: normocephalic Eyes: nl conjunctiva ENMT: nl external ears & nose Neck: jvd, supple Respiratory: clear to auscultation Cardiovascular: nl pulses, regular rate and rhythm Gastrointestinal: soft Musculoskeletal: nl extremities to inspection, nl gait and stance Results Result Diagram: 10/29/16 0557 10/29/16 0557 Results 24 hrs Laboratory Tests Test 10/28/16 12:45 10/28/16 22:20 10/29/16 05:49 10/29/16 05:57 Hemoglobin 9.3 L 9.2 L 9.3 L Hematocrit 28.2 L 27.1 L 27.9 L Lab Scanned Report BLOOD TRANSFUSION White Blood Count 5.7 Red Blood Count 3.19 L Mean Corpuscular Volume 87.5 Mean Corpuscular Hemoglobin 29.2 Mean Corpuscular Hemoglobin Concent 33.3 Red Cell Distribution Width 13.9 Platelet Count 208 Mean Platelet Volume 9.8 Neutrophils % 59.2 Lymphocytes % 32.9 Monocytes % 6.3 Eosinophils % 1.2 Basophils % 0.2 Nucleated Red Blood Cells % 0.0 Neutrophils # 3.4 Lymphocytes # 1.9 Monocytes # 0.4 Eosinophils # 0.1 Basophils # 0.0 Nucleated Red Blood Cells # 0.0 Sodium Level 135 Potassium Level 4.1 Chloride Level 106 Carbon Dioxide Level 28 Anion Gap 5 L Blood Urea Nitrogen 10 Creatinine 0.79 Glucose Level 82 Calcium Level 8.1 L Vitamin B12 Level > 1000 H Medications Medications Current Medications Ondansetron HCl (Zofran Inj) 4 mg Q6H PRN IV NAUSEA AND/OR VOMITING; Start at 00:00 Acetaminophen (Tylenol Tab) 650 mg Q6H PRN PO PAIN AND OR ELEVATED TEMP Last administered on 10/26/16 17:26; Admin Dose 650 MG; Start 10/25/16 at 00:00 Bupropion HCl (Wellbutrin Xl) 300 mg DAILY PO Last administered on 10/28/16 08 :20; Admin Dose 300 MG; Start 10/25/16 at 09:00 Escitalopram Oxalate (Lexapro) 20 mg DAILY PO Last administered on 10/28/16 08 :19; Admin Dose 20 MG; Start 10/25/16 at 09:00 Lamotrigine 200 mg 200 mg DAILY PO Last administered on 10/28/16 08:19; Admin Dose 200 MG; Start 10/25/16 at 09:00 Ferric Sodium Gluconate Complex/ Sodium Chloride (Ferrlecit/NS) 110 ml @ 110 mls/hr Q24H IVPB Last administered on 10/28/16 12:38; Admin Dose 110 MLS/HR; Start 10/27/16 at 13:00; Stop 10/30/16 at 13:59 Cyanocobalamin (Vitamin B12 Inj) 1,000 mcg DAILY IM Last administered on 08:19; Admin Dose 1,000 MCG; Start 10/27/16 at 09:00; Stop 11/02/16 at 09:01 Polyethylene Glycol (Miralax) 17 gm DAILY PO Last administered on 10/27/16 12: 26; Admin Dose 17 GM; Start 10/27/16 at 11:30 Sucralfate (Carafate) 1 gm QID PO Last administered on 10/28/16 20:28; Admin Dose 1 GM; Start 10/27/16 at 17:00 Famotidine (Pepcid) 20 mg BID PO Last administered on 10/28/16 20:29; Admin Dose 20 MG; Start 10/27/16 at 21:00 Multivitamins Therapeutic (Theragran) 1 tab BID PO Last administered on 20:28; Admin Dose 1 TAB; Start 10/28/16 at 10:00 Calcium Carbonate (Oyster Shell Calcium) 1.25 gm BID PO Last administered on 20:28; Admin Dose 1.25 GM; Start 10/28/16 at 10:00 Thiamine HCl (Vitamin B1) 100 mg DAILY PO ; Start 10/28/16 at 10:00 NAVNEET LOTT M.D. Oct 29, 2016 08:07
[2016-10-29] MEDS: CALCIUM CARBONATE 1.25 GM TAB PO SCH ×2 (08:46→22:06)
[2016-10-29] MEDS: THIAMINE 100 MG TAB PO SCH (08:47)
[2016-10-29] MEDS: PANTOPRAZOLE (EC) 40 MG TAB PO SCH (08:47)
[2016-10-29] MEDS: SUCRALFATE 1 GM TAB PO SCH ×4 (08:47→22:06)
[2016-10-29] MEDS: FAMOTIDINE 20 MG TAB PO SCH ×2 (08:47→22:06)
[2016-10-29] MEDS: MULTIVITAMINS THERAPEUTIC TAB PO SCH ×2 (08:47→22:06)
[2016-10-29] MEDS: ESCITALOPRAM 10 MG TAB PO SCH (08:47)
[2016-10-29] MEDS: LAMOTRIGINE 100 MG TAB PO SCH (08:47)
[2016-10-29] MEDS: BUPROPION (XL) 150 MG TAB PO SCH (08:48)
[2016-10-29] MEDS: CYANOCOBALAMIN 1000 MCG INJ IM SCH (08:49)
[2016-10-29] MEDS: POLYETHYLENE GLYCOL 17 GM PACKET PO SCH (08:50)
--- NOTE | 2016-10-29 09:38 | PN ---
Date/Time of Note Date/Time of Note DATE: 10/29/16 TIME: 09:38 Assessment/Plan VTE Prophylaxis VTE Prophylaxis Intervention: SCD's Lines/Catheters [facility] Urinary Cath still in place: No Assessment/Plan Assessment/Plan 1. Syncope-multiple episodes with orthostatic hypotension and tachycardia likely secondary to an acute anemia: no further episodes so far 2. Severe symptomatic Normocytic anemia? multifactorial from the following 3. Iron deficiency likely 2/2 #5 4. Severe B12 Deficiency likely 2/2 #5 5. S/p Gastric bypass 6. Probable GI bleed s/p EGD 10/28 showing the followin. Mild distal esophagitis. No evidence of fundoplication present. 2. Post-bariatric surgery, Marisabel-en-Y anastomosis with patent anastomosis. No evidence of esophageal stricture. Mild gastritis, rule out Helicobacter pylori infection 3. Enteroscopy normal to full insertion. 7. Subclinical Hypothyroidism: no intervention / monitoring per Endo 8. History of bipolar disorder: Stable Continue home meds 9. History of gastroesophageal reflux disease with esophageal stricture- that seems to have resolved PLAN: * Patient is planned for colonoscopy to further evaluate GI bleed * F/u conclusions * Continue IV Iron and subcut B12 * Continue supportive care Prophylaxis: SCDs Subjective 24 Hr Interval Summary Free Text/Dictation Patient has no new issues, Colonoscopy planned for today Exam/Review of Systems Vital Signs Vitals Vital Signs Date Time Temp Pulse Resp B/P Pulse Ox O2 Delivery O2 Flow Rate FiO2 10/29/16 07:26 98.1 79 16 98/56 100 10/28/16 19:24 Room Air Intake and Output 10/28/16 10/28/16 10/29/16 14:59 22:59 06:59 Intake Total 710 ml 2200 ml Balance 710 ml 2200 ml Exam GENERAL: Patient is alert, oriented x 3, in no apparent distress; does not appear acutely or chronically ill. Patient is able to sit up unassisted.Patient makes good eye contact, is conversant, interactive, coherent. Patient appears calm and comfortable and is able to follow commands. HEENT: Oropharynx is clear. There is no carotid bruit, no masses. Patient's pupils are equal, round and reactive to light bilaterally. Extraocular motions are intact. There is no scleral icterus. There is no facial asymmetry. mild pallor NECK: Supple. LUNGS: Clear to auscultation bilaterally with good air entry. No Wheezes or crackles. HEART: S1, S2. No murmur, gallops or rubs. Regular rate and rhythm. ABDOMEN: Soft, nontender. Normoactive bowel sounds. There are no stigmata of chronic liver disease. BACK: no costovertebral angle tenderness. GENITOURINARY: Deferred. EXTREMITIES: No edema. There is no cyanosis, clubbing. There are 2+ pulses bilaterally distally. NEUROLOGIC: The patient has no lateralizing signs. Cranial nerves II-XII are intact. SKIN: Otherwise, unremarkable. Results Result Diagram: 10/29/16 0557 10/29/1657 Results 24 hrs Laboratory Tests Test 10/28/16 12:45 10/28/16 22:20 10/29/16 05:49 10/29/16 05:57 Hemoglobin 9.3 L 9.2 L 9.3 L Hematocrit 28.2 L 27.1 L 27.9 L Lab Scanned Report BLOOD TRANSFUSION White Blood Count 5.7 Red Blood Count 3.19 L Mean Corpuscular Volume 87.5 Mean Corpuscular Hemoglobin 29.2 Mean Corpuscular Hemoglobin Concent 33.3 Red Cell Distribution Width 13.9 Platelet Count 208 Mean Platelet Volume 9.8 Neutrophils % 59.2 Lymphocytes % 32.9 Monocytes % 6.3 Eosinophils % 1.2 Basophils % 0.2 Nucleated Red Blood Cells % 0.0 Neutrophils # 3.4 Lymphocytes # 1.9 Monocytes # 0.4 Eosinophils # 0.1 Basophils # 0.0 Nucleated Red Blood Cells # 0.0 Sodium Level 135 Potassium Level 4.1 Chloride Level 106 Carbon Dioxide Level 28 Anion Gap 5 L Blood Urea Nitrogen 10 Creatinine 0.79 Glucose Level 82 Calcium Level 8.1 L Vitamin B12 Level > 1000 H Medications Medications Current Medications Ondansetron HCl (Zofran Inj) 4 mg Q6H PRN IV NAUSEA AND/OR VOMITING; Start at 00:00 Acetaminophen (Tylenol Tab) 650 mg Q6H PRN PO PAIN AND OR ELEVATED TEMP Last administered on 10/26/16 17:26; Admin Dose 650 MG; Start 10/25/16 at 00:00 Bupropion HCl (Wellbutrin Xl) 300 mg DAILY PO Last administered on 10/29/16 08: 48; Admin Dose 300 MG; Start 10/25/16 at 09:00 Escitalopram Oxalate (Lexapro) 20 mg DAILY PO Last administered on 10/29/16 08: 47; Admin Dose 20 MG; Start 10/25/16 at 09:00 Lamotrigine 200 mg 200 mg DAILY PO Last administered on 10/29/16 08:47; Admin Dose 200 MG; Start 10/25/16 at 09:00 Ferric Sodium Gluconate Complex/ Sodium Chloride (Ferrlecit/NS) 110 ml @ 110 mls/hr Q24H IVPB Last administered on 10/28/16 12:38; Admin Dose 110 MLS/HR; Start 10/27/16 at 13:00; Stop 10/30/16 at 13:59 Cyanocobalamin (Vitamin B12 Inj) 1,000 mcg DAILY IM Last administered on 08:49; Admin Dose 1,000 MCG; Start 10/27/16 at 09:00; Stop 11/02/16 at 09:01 Polyethylene Glycol (Miralax) 17 gm DAILY PO Last administered on 10/29/16 08: 50; Admin Dose 17 GM; Start 10/27/16 at 11:30 Sucralfate (Carafate) 1 gm QID PO Last administered on 10/29/16 08:47; Admin Dose 1 GM; Start 10/27/16 at 17:00 Famotidine (Pepcid) 20 mg BID PO Last administered on 10/29/16 08:47; Admin Dose 20 MG; Start 10/27/16 at 21:00 Multivitamins Therapeutic (Theragran) 1 tab BID PO Last administered on 08:47; Admin Dose 1 TAB; Start 10/28/16 at 10:00 Calcium Carbonate (Oyster Shell Calcium) 1.25 gm BID PO Last administered on 08:46; Admin Dose 1.25 GM; Start 10/28/16 at 10:00 Thiamine HCl (Vitamin B1) 100 mg DAILY PO Last administered on 10/29/16 08:47; Admin Dose 100 MG; Start 10/28/16 at 10:00 Pantoprazole (Protonix Tab) 40 mg DAILY@06 PO Last administered on 10/29/16 08: 47; Admin Dose 40 MG; Start 10/29/16 at 09:00 RUDDY BLOOD Oct 29, 2016 09:38
[2016-10-29 12:40] LABS: ANA TITER 1:40 titer
[2016-10-29] MEDS ORDERED: MIDAZOLAM 1 MG/ML 2 ML INJ ONE (13:29)
[2016-10-29] MEDS ORDERED: LIDOCAINE 2% (SDV) 5 ML INJ ONE (13:29)
[2016-10-29] MEDS ORDERED: PROPOFOL 20 ML ONE (13:29)
[2016-10-29] MEDS ORDERED: FENTAnyl 50 MCG/ML VIAL ONE (13:29)
[2016-10-29] MEDS ORDERED: OXYCODONE/ACETAMINOPHEN (5/325) TAB PO PRN ×2 (13:30)
[2016-10-29] MEDS ORDERED: ONDANSETRON 4 MG INJ IV PRN (13:30)
[2016-10-29] MEDS ORDERED: METOCLOPRAMIDE 10 MG INJ IV PRN (13:30)
[2016-10-29] MEDS ORDERED: DIPHENHYDRAMINE 50 MG INJ IV PRN (13:30)
--- NOTE | 2016-10-29 13:35 | CONS ---
Date/Time of Note Date/Time of Note DATE: 10/29/16 TIME: 13:30 Assessment/Plan Assessment/Plan Chief Complaint/Hosp Course Michael 36-year-old right-handed single female admitted with syncope. This is a new phenomenon for this woman. She has otherwise been in generally good health with specific caveats to be seen in the past medical history. Her history is as documented. Please note that she has not been taking her medications for the bariatric surgery gastric bypass she had in the past. This means she has not been on B12 she has not been on multiple vitamins she has not been on calcium and she has not been on vitamin D. She denies any prior treatment with steroids the best of her knowledge Problems: (1) Syncope and collapse Status: Resolved Comment: This is resolved since she has been in the hospital. This was due to multifactorial metabolic disturbance was most prominent feature being the critical anemia. From the standpoint she is stable for discharge (2) Vitamin B 12 deficiency Status: Chronic Comment: This is being repleted. She will need the B12 on a monthly injection basis by long-term. There is a nasal preparation however is somewhat inconvenient. Is also significantly more expensive. As such I would continue with the parenteral route. From the standpoint she is stable for discharge (3) Malabsorption Status: Chronic Comment: This is caused by the bariatric surgery she had in the past. She was not on the appropriate postoperative regimen. She should be on the following 1 ) chewable multiple vitamins twice a day such as a Flintstones. 2) vitamin B12 once a month3) vitamin D once replaced then at 5860-6142 units a day using an [id number] preparation. For now she will need 50,000 units once a week for a period of 3 months. 4) thiamine 100 mg once a day. 5) calcium citrate 1200 mg twice daily. If this is not done this way we will have problems with her again in the future. Qualifiers: Intestinal malabsorption type: other Qualified Code: K90.89 - Other specified intestinal malabsorption (4) Vitamin D deficiency Status: Chronic Comment: Replace with 50,000 units once a week for the first 3 months then go to 2000 4000 units [id number] preparation daily (5) Bipolar affective disorder in remission Status: Chronic Comment: Stable and controlled on current regimen (6) Iron (Fe) deficiency anemia Status: Chronic Comment: Being repleted with parenteral iron as the patient's unlikely to absorb the oral preparations well. We are approaching the point where she can be discharged from the standpoint Qualifiers: Iron deficiency anemia type: unspecified iron deficiency Qualified Code: D50.9 - Iron deficiency anemia, unspecified iron deficiency anemia type (7) History of bariatric surgery Status: Chronic Comment: As above. Please note she is pending colonoscopy completion which is ongoing as this is being dictated Consultation Date/Type/Reason Admit Date/Time October 24, 2016 at 19:35 Initial Consult Date 10/26/16 Type of Consultation: Endocrinology Reason for Consultation Metabolic disturbance Referring Provider: RUDDY BLOOD 24 HR Interval Summary Free Text/Dictation Patient is receiving colonoscopy at this time is sedated. Exam/Review of Systems Vital Signs Vitals Vital Signs Date Time Temp Pulse Resp B/P Pulse Ox O2 Delivery O2 Flow Rate FiO2 10/29/16 13:03 79 18 108/68 100 Room Air 10/29/16 07:26 98.1 Intake and Output 10/28/16 10/28/16 10/29/16 15:00 23:00 07:00 Intake Total 710 ml 2200 ml Balance 710 ml 2200 ml Exam No changes Results Result Diagram: 10/29/16 0557 10/29/16 0557 Results 24 hrs Laboratory Tests Test 10/28/16 22:20 10/29/16 05:49 10/29/16 05:57 Hemoglobin 9.2 L 9.3 L Hematocrit 27.1 L 27.9 L Lab Scanned Report BLOOD TRANSFUSION White Blood Count 5.7 Red Blood Count 3.19 L Mean Corpuscular Volume 87.5 Mean Corpuscular Hemoglobin 29.2 Mean Corpuscular Hemoglobin Concent 33.3 Red Cell Distribution Width 13.9 Platelet Count 208 Mean Platelet Volume 9.8 Neutrophils % 59.2 Lymphocytes % 32.9 Monocytes % 6.3 Eosinophils % 1.2 Basophils % 0.2 Nucleated Red Blood Cells % 0.0 Neutrophils # 3.4 Lymphocytes # 1.9 Monocytes # 0.4 Eosinophils # 0.1 Basophils # 0.0 Nucleated Red Blood Cells # 0.0 Sodium Level 135 Potassium Level 4.1 Chloride Level 106 Carbon Dioxide Level 28 Anion Gap 5 L Blood Urea Nitrogen 10 Creatinine 0.79 Glucose Level 82 Calcium Level 8.1 L Vitamin B12 Level > 1000 H Medications Medications Current Medications Ondansetron HCl (Zofran Inj) 4 mg Q6H PRN IV NAUSEA AND/OR VOMITING; Start at 00:00 Acetaminophen (Tylenol Tab) 650 mg Q6H PRN PO PAIN AND OR ELEVATED TEMP Last administered on 10/26/16 17:26; Admin Dose 650 MG; Start 10/25/16 at 00:00 Bupropion HCl (Wellbutrin Xl) 300 mg DAILY PO Last administered on 10/29/16 08: 48; Admin Dose 300 MG; Start 10/25/16 at 09:00 Escitalopram Oxalate (Lexapro) 20 mg DAILY PO Last administered on 10/29/16 08: 47; Admin Dose 20 MG; Start 10/25/16 at 09:00 Lamotrigine 200 mg 200 mg DAILY PO Last administered on 10/29/16 08:47; Admin Dose 200 MG; Start 10/25/16 at 09:00 Ferric Sodium Gluconate Complex/ Sodium Chloride (Ferrlecit/NS) 110 ml @ 110 mls/hr Q24H IVPB Last administered on 10/28/16 12:38; Admin Dose 110 MLS/HR; Start 10/27/16 at 13:00; Stop 10/30/16 at 13:59 Cyanocobalamin (Vitamin B12 Inj) 1,000 mcg DAILY IM Last administered on 08:49; Admin Dose 1,000 MCG; Start 10/27/16 at 09:00; Stop 11/02/16 at 09:01 Polyethylene Glycol (Miralax) 17 gm DAILY PO Last administered on 10/29/16 08: 50; Admin Dose 17 GM; Start 10/27/16 at 11:30 Sucralfate (Carafate) 1 gm QID PO Last administered on 10/29/16 08:47; Admin Dose 1 GM; Start 10/27/16 at 17:00 Famotidine (Pepcid) 20 mg BID PO Last administered on 10/29/16 08:47; Admin Dose 20 MG; Start 10/27/16 at 21:00 Multivitamins Therapeutic (Theragran) 1 tab BID PO Last administered on 08:47; Admin Dose 1 TAB; Start 10/28/16 at 10:00 Calcium Carbonate (Oyster Shell Calcium) 1.25 gm BID PO Last administered on 08:46; Admin Dose 1.25 GM; Start 10/28/16 at 10:00 Thiamine HCl (Vitamin B1) 100 mg DAILY PO Last administered on 10/29/16 08:47; Admin Dose 100 MG; Start 10/28/16 at 10:00 Pantoprazole (Protonix Tab) 40 mg DAILY@06 PO Last administered on 10/29/16 08: 47; Admin Dose 40 MG; Start 10/29/16 at 09:00 ELIZABETH TRAORE MD Oct 29, 2016 13:35
[2016-10-29] MEDS: SOD FERRIC GLUC COMPLX 125 MG in SOD CHLORIDE 0.9% 100 ML IVPB SCH (16:17)
[2016-10-29 16:35] LABS: HEMATOCRIT 27.9 % (37.0-47.0); HEMOGLOBIN 9.6 g/dl (12.0-16.0)
[2016-10-29 22:34] LABS: HEMATOCRIT 28.3 % (37.0-47.0); HEMOGLOBIN 9.5 g/dl (12.0-16.0)
[2016-10-30 05:35] LABS: ADD SCAN DIFF NO
[2016-10-30 05:54] LABS: BASOPHILS % 0.2 % (0.0-2.0); EOSINOPHILS # 0.1 10^3/ul (0.0-0.5); EOSINOPHILS % 1.5 % (0.0-7.0); HEMATOCRIT 28.1 % (37.0-47.0); HEMOGLOBIN 9.2 g/dl (12.0-16.0); LYMPHOCYTES # 1.9 10^3/ul (0.8-2.9); LYMPHOCYTES % 33.8 % (15.0-51.0); MEAN CORPUSCULAR HEMOGLOBIN 29.3 pg (29.0-33.0); MEAN CORPUSCULAR HGB CONC 32.7 g/dl (32.0-37.0); MEAN CORPUSCULAR VOLUME 89.5 fl (82.0-101.0); MEAN PLATELET VOLUME 9.7 fl (7.4-10.4); MONOCYTE # 0.4 10^3/ul (0.3-0.9); MONOCYTES % 7.1 % (0.0-11.0); NEUTROPHIL # 3.1 10^3/ul (1.6-7.5); PLATELET COUNT 223 10^3/UL (140-415); RED BLOOD COUNT 3.14 10^6/ul (4.20-5.40); RED CELL DISTRIBUTION WIDTH 14.8 % (11.5-14.5); WHITE BLOOD COUNT 5.5 10^3/ul (4.8-10.8)
[2016-10-30] MEDS: PANTOPRAZOLE (EC) 40 MG TAB PO SCH (06:01)
[2016-10-30 06:40] LABS: CALCIUM 8.4 mg/dl (8.4-10.2); CREATININE 0.95 mg/dl (0.44-1.00); POTASSIUM 4.7 mmol/L (3.5-5.1)
[2016-10-30] MEDS ORDERED: Cyanocobalamin Inj IM (06:47)
[2016-10-30] MEDS ORDERED: ERGO500037 PO (06:47)
[2016-10-30] MEDS ORDERED: Thiamine PO (06:47)
[2016-10-30] MEDS ORDERED: PANT40TA4 PO (06:47)
[2016-10-30] MEDS ORDERED: FER325 PO (06:47)
[2016-10-30] MEDS ORDERED: DOCU-144 PO (06:47)
[2016-10-30] MEDS ORDERED: MULTI PO (06:47)
[2016-10-30] MEDS ORDERED: Calcium Carbonate PO (06:47)
[2016-10-30] MEDS ORDERED: ASC500 PO (06:50)
--- NOTE | 2016-10-30 06:53 | PDOCDIS ---
Discharge Instructions DIAGNOSIS Discharge Diagnosis: Severe anemia 2/2 malabsorption CONDITION Patient Condition: Stable HOME CARE INSTRUCTIONS: Special Diet: Regular Diet ACTIVITY: Activity Restrictions: Slowly Increase Activity Rest between Activity FOLLOW UP/APPOINTMENTS Appointments Followup with your primary doctor within the next 1-2 weeks. If you don't have one please let someone know, we can give you resources that may help you pick one. You may call Dr Derrick Rob's office. he's accepting new patients Name, Degree: Derrick Rob MD Specialty: Internal Medicine Comments: Office Address: [address] [facility] [address] [place] [address] Office Office You may also call your insurance company to assign one to you. Review your medication list with your nurse before leaving and if you need new prescriptions please let your nurse know. I may have made changes to your home medications or given you new prescriptions , please let your primary doctor know as well. Stay compliant with your medications and report any side effects to your PCP or pharmacist. Return to the ER if you have any concerns and cannot reach your doctors or call your insurance company, they usually have a nurse that can help you. OTHER ORDERS: Other Orders: Call Dr. Vaughn's office for follow-up. She can help with your cancer or blood issues. Name, Degree: Petra Vaughn MD Specialty: Oncology, Hematology Comments: Office Address: [address] [facility] [address] [place] [address] Office or [phone] (after hours) Office Also call Dr Spencer's office Name, Degree: Zhang Spencer MD Specialty: Endocrinology Comments: Office Address: [address] [place] [address] Office Office RUDDY BLOOD Oct 30, 2016 06:53
[2016-10-30] MEDS ORDERED: [UNRECOGNIZED DRUG - CODE] MC (06:55)
[2016-10-30 07:39] VITALS: BP 99/58; RESP 18
[2016-10-30] MEDS ORDERED: ERGOCALCIFEROL 50,000 UNIT CAP PO SCH (09:00)
[2016-10-30] MEDS: POLYETHYLENE GLYCOL 17 GM PACKET PO SCH (09:00)
[2016-10-30] MEDS: BUPROPION (XL) 150 MG TAB PO SCH (09:13)
[2016-10-30] MEDS: LAMOTRIGINE 100 MG TAB PO SCH (09:14)
[2016-10-30] MEDS: SUCRALFATE 1 GM TAB PO SCH (09:15)
[2016-10-30] MEDS: ESCITALOPRAM 10 MG TAB PO SCH (09:15)
[2016-10-30] MEDS: THIAMINE 100 MG TAB PO SCH (09:15)
[2016-10-30] MEDS: MULTIVITAMINS THERAPEUTIC TAB PO SCH (09:15)
[2016-10-30] MEDS: FAMOTIDINE 20 MG TAB PO SCH (09:16)
[2016-10-30] MEDS: CALCIUM CARBONATE 1.25 GM TAB PO SCH (09:16)
[2016-10-30] MEDS: CYANOCOBALAMIN 1000 MCG INJ IM SCH (09:17)
--- NOTE | 2016-10-30 14:09 | CONS ---
Date/Time of Note Date/Time of Note DATE: 10/30/16 TIME: 14:05 Assessment/Plan Assessment/Plan Chief Complaint/Hosp Course 36 yo with severe anemia secondary to severe iron deficiency as well as Vitamin B12 deficiency. These are related to her gastric bypass from 2014 as it appears patient is not able to appropriately absorb essential nutrients. Give her low LDH and normal bilirubin it is unlikely patient is hemolyzing. Pt has received 5 units of PRBCs and her Hg is now stable around low to mid 9s. # Anemia -continue with Vitamin b12 1000mcg q day x 7 days total then 1x week for 4 week. She will then continue with q months dosage. -check methylmalonic acid and homocysteine levels - still pending. -continue folate 1 mg q day -cont IV iron x 5 days total -continue to monitor Hg. Ok from hematology perspective to discharge home. -s/p colonoscopy yesterday that revealed small hemorrhoids per patient, awaiting official report #Gastritis -continue carafate and pepcid -continue omeprazole 2mg q day Problems: Consultation Date/Type/Reason Admit Date/Time October 24, 2016 at 19:35 Initial Consult Date 10/27/16 Type of Consultation: Hematology Referring Provider: RUDDY BLOOD 24 HR Interval Summary Free Text/Dictation Patient ready for discharge. She is doing well, just has some gas and mild pressure in her lower abdomen. Per patient, she had a colonoscopy yesterday that showed small hemorrhoids. Exam/Review of Systems Vital Signs Vitals Vital Signs Date Time Temp Pulse Resp B/P Pulse Ox O2 Delivery O2 Flow Rate FiO2 10/30/16 07:39 98.1 71 18 99/58 100 10/29/16 18:51 Room Air Intake and Output 10/29/16 10/29/16 10/30/16 15:00 23:00 07:00 Intake Total 100 ml 710 ml 800 ml Balance 100 ml 710 ml 800 ml Exam Constitutional: alert, oriented Psych: no complaints Head: normocephalic Eyes: nl conjunctiva ENMT: nl external ears & nose Neck: jvd, supple Respiratory: clear to auscultation Cardiovascular: nl pulses, regular rate and rhythm Gastrointestinal: soft Musculoskeletal: nl extremities to inspection, nl gait and stance Results Result Diagram: 10/30/16 0445 10/30/16 0459 Results 24 hrs Laboratory Tests Test 10/29/16 15:56 10/29/16 22:09 10/30/16 04:45 10/30/16 04:56 Hemoglobin 9.6 L 9.5 L 9.2 L Hematocrit 27.9 L 28.3 L 28.1 L White Blood Count 5.5 Red Blood Count 3.14 L Mean Corpuscular Volume 89.5 Mean Corpuscular Hemoglobin 29.3 Mean Corpuscular Hemoglobin Concent 32.7 Red Cell Distribution Width 14.8 H Platelet Count 223 Mean Platelet Volume 9.7 Neutrophils % 57.0 Lymphocytes % 33.8 Monocytes % 7.1 Eosinophils % 1.5 Basophils % 0.2 Nucleated Red Blood Cells % 0.0 Neutrophils # 3.1 Lymphocytes # 1.9 Monocytes # 0.4 Eosinophils # 0.1 Basophils # 0.0 Nucleated Red Blood Cells # 0.0 Vitamin B12 Level > 1000 H Test 10/30/16 04:59 Sodium Level 141 Potassium Level 4.7 Chloride Level 105 Carbon Dioxide Level 28 Anion Gap 13 # Blood Urea Nitrogen 10 Creatinine 0.95 Glucose Level 78 Calcium Level 8.4 JUAN MANUEL PAGE MD Oct 30, 2016 14:09
--- NOTE | 2016-10-30 15:02 | DS ---
Date/Time of Note Date/Time of Note DATE: 10/30/16 TIME: 14:59 Discharge Summary Admission/Discharge Info Admit Date/Time October 24, 2016 at 19:35 Discharge Date/Time Oct 30, 2016 at 11:30 Final Diagnosis 1. Syncope-multiple episodes with orthostatic hypotension and tachycardia likely secondary to an acute anemia: no further episodes so far 2. Severe symptomatic Normocytic anemia? multifactorial from the following 3. Iron deficiency likely 2/2 #5 4. Severe B12 Deficiency likely 2/2 #5 5. S/p Gastric bypass 2014 6. GI bleed 2/2 hemorrhoids EGD 10/28 showing the followin. Mild distal esophagitis. No evidence of fundoplication present. 2. Post-bariatric surgery, Marisabel-en-Y anastomosis with patent anastomosis. No evidence of esophageal stricture. Mild gastritis, rule out Helicobacter pylori infection 3. Enteroscopy normal to full insertion. Colonscopy 10/29 : 1. hemorrhoids per patient 7. Subclinical Hypothyroidism: no intervention / monitoring per Endo 8. History of bipolar disorder: Stable Continue home meds 9. History of gastroesophageal reflux disease with esophageal stricture- that seems to have resolved . Patient Condition: Stable Consults Hematology : Johana Endocrinology : triston GI : Suchov . Procedures 1. Carotid Dopplers to evaluate syncopal episodes. This showed no hemodynamically significant disease. 2. Pelvic ultrasound October 26, 2016 which showed a complicated left ovarian cystic lesion measuring 1.9 cm. Recommended follow-up pelvic ultrasound in 6- 12 weeks. 3. EGD and colonoscopy: See hospital course for results 4. 2D echocardiogram October 25, 2016 to evaluate syncope: This showed ejection fraction at 60% without significant valvular deficits . Hospital Course This 36 yo F had presented with recurrent syncopal episodes about 6-8 times daily and was found to be severely anemic, with orthostatic hypotension. She was first stabilized with transfusion of packed red cells., And she ended up requiring 5 units of packed red cells to get her hemoglobin to a stable level. In the interim she was worked up extensively for the anemia. She was found to have severe iron deficiency as well as severe vitamin B12 deficiency. Hematology consultation was obtained and they assisted in replenishing and managing this. Also her stool occult blood came back positive and the patient had reported black tarry stools. Hence she underwent upper as well as lower endoscopy, and EGD did not show much, just showed a mild esophagitis and colonoscopy only showed hemorrhoids. Hence, her stool bleeding is likely from hemorrhoids and her severe anemia likely from poor absorption from her previous gastric bypass in 2014 with iron deficiency and B12 deficiency. She has been put on the on an appropriate regimen that will work for her and she is recommended to keep this up. She will follow-up with Dr. He, for endocrinology and primary and with Dr. Petra Altamirano for hematology. She was maintained on her medications for depression throughout her hospitalization she had no issues with that. Comorbidities were also aggressively managed as per Med records. Patient at this time has been evaluated and examined in detail and is assessed to be in stable condition and ready for discharge once cleared by all consultants. . Home Meds Active Scripts Syringe & Needle,Insulin,1 Ml (ADVOCATE SYRINGES) 1 Each Disp.syrin, 1 EACH MC weeklyx4 then monthl, #10 Prov:RUDDY BLOOD . 10/30/16 Ascorbic Acid (Vitamin C) 500 Mg Tab, 500 MG PO DAILY for 30 Days, TAB 6 Refills Prov:RUDDY BLOOD . 10/30/16 Docusate Sodium* (Colace*) 100 Mg Capsule, 100 MG PO BID, #60 CAP 6 Refills Prov:RUDDY BLOOD . 10/30/16 Ferrous Sulfate* (Ferrous Sulfate*) 325 Mg Tabec, 325 MG PO BID for 30 Days, TAB 6 Refills Prov:RUDDY BLOOD . 10/30/16 [Thiamine] 100 MG TAB No Conflict Check, 100 MG PO DAILY for 30 Days, 6 Refills Prov:RUDDY BLOOD. 10/30/16 Multivitamins* (Theragran*) 1 Tab Tab, 1 TAB PO BID for 30 Days, TAB 6 Refills Prov:RUDDY BLOOD . 10/30/16 Ergocalciferol (Vitamin D2) (VITAMIN D2) 50,000 Unit Capsule, 20403 UNIT PO Fr@ 09 for 30 Days, CAP 6 Refills Prov:RUDDY BLOOD 10/30/16 [Cyanocobalamin Inj] 1000 MCG/ML SOLN No Conflict Check, 1000 MCG IM weekly, #4 Prov:RUDDY BLOOD . 10/30/16 Pantoprazole* (Pantoprazole*) 40 Mg Tablet.dr, 40 MG PO DAILY@06 for 14 Days Prov:RUDDY BLOOD. 10/30/16 [Calcium Carbonate] 1.25 GM TAB No Conflict Check, 1.25 GM PO BID for 30 Days, 6 Refills Prov:RUDDY BLOOD. 10/30/16 Reported Medications Escitalopram Oxalate* (Lexapro*) 20 Mg Tablet, 20 MG PO DAILY, #30 TAB 10/24/16 Lamotrigine* (Lamotrigine*) 200 Mg Tablet, 200 MG PO DAILY, TAB 10/24/16 Bupropion Hcl* (Bupropion XL*) 300 Mg Tab.sr.24h, 300 MG PO DAILY, TAB.SA 10/24/16 Follow-up Plan See hospital course. . Primary Care Provider Care Physician No Primary Time spent on discharge: > 30 minutes Pending Labs Laboratory Tests Test 10/29/16 15:56 10/29/16 22:09 10/30/16 04:45 10/30/16 04:56 Hemoglobin 9.6g/dl (12.0-16.0) 9.5g/dl (12.0-16.0) 9.2g/dl (12.0-16.0) Hematocrit 27.9% (37.0-47.0) 28.3% (37.0-47.0) 28.1% (37.0-47.0) White Blood Count 5.510^3/ul (4.8-10.8) Red Blood Count 3.1410^6/ul (4.20-5.40) Mean Corpuscular Volume 89.5fl (82.0-101.0) Mean Corpuscular Hemoglobin 29.3pg (29.0-33.0) Mean Corpuscular Hemoglobin Concent 32.7g/dl (32.0-37.0) Red Cell Distribution Width 14.8% (11.5-14.5) Platelet Count 10097^3/UL (140-415) Mean Platelet Volume 9.7fl (7.4-10.4) Neutrophils % 57.0% (39.0-77.0) Lymphocytes % 33.8% (15.0-51.0) Monocytes % 7.1% (0.0-11.0) Eosinophils % 1.5% (0.0-7.0) Basophils % 0.2% (0.0-2.0) Nucleated Red Blood Cells % 0.0/100WBC (0.0-0.0) Neutrophils # 3.110^3/ul (1.6-7.5) Lymphocytes # 1.910^3/ul (0.8-2.9) Monocytes # 0.410^3/ul (0.3-0.9) Eosinophils # 0.110^3/ul (0.0-0.5) Basophils # 0.010^3/ul (0.0-0.1) Nucleated Red Blood Cells # 0.010^3/ul (0.0-0.0) Vitamin B12 Level > 1000pg/ml (239-931) Test 10/30/16 04:59 Sodium Level 141mmol/L (135-144) Potassium Level 4.7mmol/L (3.5-5.1) Chloride Level 105mmol/L (97-110) Carbon Dioxide Level 28mmol/L (21-31) Anion Gap 13 (8-16) Blood Urea Nitrogen 10mg/dl (7-20) Creatinine 0.95mg/dl (0.44-1.00) Glucose Level 78mg/dl (70-220) Calcium Level 8.4mg/dl (8.4-10.2) RUDDY BLOOD Oct 30, 2016 15:02
== END 2016-10-30 11:30 | disposition home or self-care (01) | DRG 392 ==
LOC: TEL 19:35 → MS2 10-28 14:20
PROVIDERS: ADMIT Internal Medicine; ATTEND Internal Medicine
PROC: 30233N1 Transfusion of Nonautologous Red Blood Cells into Peripheral Vein, Percutaneous Approach (ICD-10-PCS; 2016-10-25)
PROC: 30233N1 Transfusion of Nonautologous Red Blood Cells into Peripheral Vein, Percutaneous Approach (ICD-10-PCS; 2016-10-26)
PROC: 30233N1 Transfusion of Nonautologous Red Blood Cells into Peripheral Vein, Percutaneous Approach (ICD-10-PCS; 2016-10-27)
PROC: 0DB68ZX Excision of Stomach, Via Natural or Artificial Opening Endoscopic, Diagnostic (ICD-10-PCS; principal; 2016-10-28 19:00)
DX: K90.89 Other intestinal malabsorption (principal); D51.9 Vitamin B12 deficiency anemia, unspecified; K92.1 Melena; D50.9 Iron deficiency anemia, unspecified; K22.2 Esophageal obstruction; K21.9 Gastro-esophageal reflux disease without esophagitis; E03.9 Hypothyroidism, unspecified; F31.9 Bipolar disorder, unspecified; D64.9 Anemia, unspecified; I95.1 Orthostatic hypotension; Z98.84 Bariatric surgery status
CPT/HCPCS: 36430; 76830; 76856; 80048; 80053; 80307; 82270; 82306; 82533; 82607; 82728; 82746; 83010; 83090; 83540; 83615; 83735; 83921; 84100; 84439; 84443; 84484; 85014; 85018; 85025; 85045; 85651; 86038; 86376; 86803; 86850; 86900; 86901; 86920; 87340; 88305; 88312; 93306; 93880; J2250; J2916; J3010; J3420; P9016

== ENCOUNTER 2016-11-27 09:54 | Emergency (ER) | payer OTHER ==
[~2016-11-27] VITALS: Wt 65.5 kg
[~2016-11-27 09:54] MED LIST: ASC500 PO; BUPR300T36 PO; Calcium Carbonate PO; Cyanocobalamin Inj IM; DOCU-144 PO; ERGO500037 PO; ESCI20TA PO; FER325 PO; LAMO200T PO; MULTI PO; PANT40TA4 PO; Thiamine PO; [UNRECOGNIZED DRUG - CODE] MC
[2016-11-27] MEDS ORDERED: CITA20TA11 PO (10:26)
[2016-11-27] MEDS ORDERED: BUPR300T48 PO (10:26)
[2016-11-27] MEDS ORDERED: LAMO200T18 PO (10:26)
--- NOTE | 2016-12-14 11:05 | ERD ---
ER Documentation Chief Complaint Date/Time DATE: 12/14/16 TIME: 10:01 Chief Complaint MED REFILL FOR DEPRESSION HPI 36 yo female presents for refill of three psychiatric medications. She is feeling well now and wants to keep it that way. She recently had a switch of insurance and is working on getting a new PCP and insurance. She has no current physical or mental complaints. ROS All systems reviewed and are negative except as per history of present illness. Medications Home Meds Active Scripts Bupropion Hcl* (Wellbutrin XL*) 300 Mg Tab.sr.24h, 300 MG PO DAILY, #30 TAB.SA Prov:ANASTACIAPRANAVELIZABETH DO 11/27/16 Lamotrigine* (Lamictal*) 200 Mg Tablet, 200 MG PO DAILY, #30 TAB Prov:ELIZABETH GALAVIZ DO 11/27/16 Citalopram Hydrobromide* (Celexa*) 20 Mg Tablet, 20 MG PO DAILY, #30 TAB Prov:ELIZABETH GALAVIZ DO 11/27/16 Syringe & Needle,Insulin,1 Ml (ADVOCATE SYRINGES) 1 Each Disp.syrin, 1 EACH MC weeklyx4 then monthl, #10 Prov:RUDDY BLOOD. 10/30/16 Ascorbic Acid (Vitamin C) 500 Mg Tab, 500 MG PO DAILY for 30 Days, TAB 6 Refills Prov:JEREMIRUDDY. 10/30/16 Docusate Sodium* (Colace*) 100 Mg Capsule, 100 MG PO BID, #60 CAP 6 Refills Prov:JEREMIRUDDY. 10/30/16 Ferrous Sulfate* (Ferrous Sulfate*) 325 Mg Tabec, 325 MG PO BID for 30 Days, TAB 6 Refills Prov:JEREMIKATHI McmahonMAIRA Mercado. 10/30/16 [Thiamine] 100 MG TAB No Conflict Check, 100 MG PO DAILY for 30 Days, 6 Refills Prov:RUDDY BLOOD. 10/30/16 Multivitamins* (Theragran*) 1 Tab Tab, 1 TAB PO BID for 30 Days, TAB 6 Refills Prov:JEREMIRUDDY. 10/30/16 Ergocalciferol (Vitamin D2) (VITAMIN D2) 50,000 Unit Capsule, 09481 UNIT PO Fr@ 09 for 30 Days, CAP 6 Refills Prov:RUDDY BLOOD 10/30/16 [Cyanocobalamin Inj] 1000 MCG/ML SOLN No Conflict Check, 1000 MCG IM weekly, #4 Prov:RUDDY BLOOD 10/30/16 Pantoprazole* (Pantoprazole*) 40 Mg Tablet.dr, 40 MG PO DAILY@06 for 14 Days Prov:RUDDY BLOOD 10/30/16 [Calcium Carbonate] 1.25 GM TAB No Conflict Check, 1.25 GM PO BID for 30 Days, 6 Refills Prov:RUDDY BLOOD. 10/30/16 Reported Medications Escitalopram Oxalate* (Lexapro*) 20 Mg Tablet, 20 MG PO DAILY, #30 TAB 10/24/16 Lamotrigine* (Lamotrigine*) 200 Mg Tablet, 200 MG PO DAILY, TAB 10/24/16 Bupropion Hcl* (Bupropion XL*) 300 Mg Tab.sr.24h, 300 MG PO DAILY, TAB.SA 10/24/16 Allergies Allergies: Coded Allergies: codeine (Verified Allergy, Intermediate, 10/24/16) PMhx/Soc History of Surgery: No Anesthesia Reaction: No Hx Neurological Disorder: No Hx Respiratory Disorders: No Hx Cardiac Disorders: No Hx Psychiatric Problems: Yes (Bipolar disorder ) Hx Miscellaneous Medical Probl: No Hx Alcohol Use: Yes (2x 10/23/16) Hx Substance Use: No Hx Tobacco Use: No Physical Exam Physical Exam Const: [] NO distress, well appearing. Head: Atraumatic Eyes: Normal Conjunctiva Ext: No cyanosis, or edema Neur: Awake and alert Psych: Normal Mood and Affect Procedures/MDM Simple medication refill. One month supply of 3 medications as listed in mediation section. PCP follow up and return precautions. Stable condition Departure Diagnosis: Primary Impression: Encounter for medication refill Condition: Stable Patient Instructions: Taking Medicine Safely Additional Instructions: Call your primary care doctor TOMORROW for an appointment during the next 2-3 days.See the doctor sooner or return here if your condition worsens before your appointment time. ELIZABETH GALAVIZ DO Dec 14, 2016 11:05
== END 2016-11-27 10:51 | disposition home or self-care (01) ==
LOC: FTE 09:54
DX: Z76.0 Encounter for issue of repeat prescription (principal)
CPT/HCPCS: 99281